=== PATIENT | female | born 1940 | race Caucasian/White ===

== ENCOUNTER → 2024-01-23 13:29 | Outpatient (REF) | payer MEDICARE, SELFPAY | LOC: RAD 13:29 | PROVIDERS: ATTENDING PHYSICIAN Student in an Organized Health Care Education/Training Program | DX: K59.00 Constipation, unspecified (principal); Z87.19 Personal history of other diseases of the digestive system | CPT/HCPCS: 74177; Q9967 ==

== ENCOUNTER → 2024-01-30 12:08 | Outpatient (REF) | payer MEDICARE, SELFPAY ==
[2024-01-30 14:15] LABS: TSH Reflex To Free T4 3.24 uIU/ml (0.47-4.68)
== END ==
LOC: REG 12:08
PROVIDERS: ATTENDING PHYSICIAN Student in an Organized Health Care Education/Training Program
DX: Z13.29 Encounter for screening for other suspected endocrine disorder (principal); N64.4 Mastodynia; I10 Essential (primary) hypertension; R73.03 Prediabetes; I48.0 Paroxysmal atrial fibrillation
CPT/HCPCS: 36415; 84443

== ENCOUNTER → 2024-03-11 14:51 | Outpatient (REF) | payer MEDICARE, SELFPAY | LOC: RCS 14:51 | PROVIDERS: ATTENDING PHYSICIAN Physician Assistant; FAMILY PHYSICIAN Family Medicine | DX: R06.09 Other forms of dyspnea (principal); I48.0 Paroxysmal atrial fibrillation | CPT/HCPCS: 93306 ==

== ENCOUNTER → 2024-04-15 10:00 | Outpatient (REF) | payer MEDICARE, SELFPAY | LOC: WDC 10:00 | PROVIDERS: ATTENDING PHYSICIAN Family Medicine | DX: N64.4 Mastodynia (principal) | CPT/HCPCS: 76642; 77062; 77066 ==

== ENCOUNTER → 2024-04-27 09:26 | Outpatient (REF) | payer MEDICARE, SELFPAY ==
[2024-04-27 10:42] LABS: % Eosinophils 2.6 % (0-6); % Immature Granulocytes 0.3 % (0-0.5); % Lymphocytes 25.3 % (20.5-51.1); % Monocytes 7.1 % (1.7-9.3); % Neutrophils 63.7 % (42.2-75.2); Absolute Basophils 0.1 10^3/uL (0-0.2); Absolute Eosinophils 0.2 10^3/uL (0-0.7); Absolute Lymphocytes 1.6 10^3/uL (1.2-3.4); Absolute Monocytes 0.4 10^3/uL (0.1-0.6); Hematocrit 38.4 % (37.0-47.0); Hemoglobin 12.8 g/dL (12.0-16.0); Mean Corp Hgb Conc. 33.3 g/dL (33.0-37.0); Mean Corpuscular Hgb 29.2 pg (27.0-31.0); Mean Corpuscular Volume 87.5 fL (81.0-99.0); Mean Platelet Volume 9.8 fL (7.4-10.4); Nucleated Red Blood Cells % 0 %; Platelet Count 224 10^3/uL (130-400); Red Blood Cell Count 4.39 10^6/uL (4.20-5.40); Red Cell Dist. Width 13.5 % (11.5-14.5); White Blood Cell Count 6.2 10^3/uL (4.8-10.8)
[2024-04-27 10:46] LABS: Urine Albumin Negative (Neg - Trace); Urine Bilirubin Negative (Negative); Urine Character Clear (Clear); Urine Color Yellow; Urine Glucose Negative (Negative); Urine Ketone Negative (Negative); Urine Leukocyte Trace (Negative); Urine Nitrite Negative (Negative); Urine Occult Blood 1+ (Negative); Urine Urobilinogen Negative (Neg - 1+)
[2024-04-27 11:21] LABS: ALT (SGPT) 11 U/L (0-35); AST (SGOT) 32 U/L (14-36); Albumin 4.1 g/dl (3.5-5.0); Alkaline Phosphatase 58 U/L (38-126); Blood Urea Nitrogen 18 mg/dl (7-17); Calcium 9.7 mg/dl (8.4-10.2); Carbon Dioxide 29 mmol/L (22-30); Chloride 104 mmol/L (98-107); Glucose 90 mg/dl (70-99); HDL Cholesterol 79 mg/dl; LDL Cholesterol, Calculated 68 mg/dl; Potassium 4.5 mmol/L (3.5-5.1); Sodium 141 mmol/L (135-145); Total Bilirubin 0.7 mg/dl (0.2-1.3); Total Cholesterol 164 mg/dl (50-199); Total Protein 6.5 g/dl (6.3-8.2); Triglyceride 87 mg/dl (10-149); Very Low Density Lipoprotein 17 mg/dl (0-30); eGFR > 60.00
[2024-04-27 12:04] LABS: Urine White Cell 0-2 /HPF (0-5)
[2024-04-27 12:10] LABS: Glycohemoglobin (HgbA1c) 5.6 % (4.0-5.6)
[2024-04-27 18:20] LABS: TSH Reflex To Free T4 3.47 uIU/ml (0.47-4.68)
== END ==
LOC: REG 09:26
PROVIDERS: ATTENDING PHYSICIAN Family Medicine
DX: N64.4 Mastodynia (principal); I10 Essential (primary) hypertension; R73.03 Prediabetes; I48.0 Paroxysmal atrial fibrillation; Z13.29 Encounter for screening for other suspected endocrine disorder
CPT/HCPCS: 36415; 80053; 80061; 81003; 81015; 83036; 84443; 85025

== ENCOUNTER → 2024-11-11 13:35 | Outpatient (REF) | payer MEDICARE, SELFPAY | LOC: RAD 13:35 | PROVIDERS: ATTENDING PHYSICIAN Family Medicine | DX: R06.2 Wheezing (principal); R06.02 Shortness of breath | CPT/HCPCS: 71046 ==

== ENCOUNTER 2025-01-27 06:37 | Emergency (ER) | payer MEDICARE, SELFPAY ==
[2025-01-27] VITALS (8 sets, daily range): BP systolic 129–157; BP diastolic 51–73; BMI 24.8
--- NOTE | 2025-01-27 06:40 | ED.GENMED ---
History of Present Illness
General
Chief Complaint: Heart Rate Problem
Source: patient and ambulance crew
Time Seen by Provider: 01/27/25 06:40
History of Present Illness
History of Present Illness:
As per EMS this patient is an 84-year-old female who awoke with substernal chest discomfort without radiation associated with dyspnea. Upon their arrival patient was noted to be in A-fib with a rate of 1 40-1 50s. On transport here, they suspect
patient spontaneously converted and her rate is noted to be in the 70s.
As per patient, patient has been not feeling quite herself since yesterday. She said she noticed when walking back and forth to the gym that it was a little bit hard to breathe. She noticed last night while going to bed that she was very tired and
had some slight discomfort in her chest. She went to the bathroom during the night without new symptoms. She awoke at approximately 5 AM feeling particularly short of breath with chest discomfort. Her watch told her that she should be seen by
emergency. She is unaware if her heart rate was elevated yesterday. She states that the symptoms are very consistent with when she develops atrial fibrillation. She denies leg swelling, orthopnea, fever, chills, dizziness, abdominal pain, nausea,
vomiting. Patient is not anticoagulated given her history of GI bleed.
Past History
Past History
ED Past Medical History: Arrthythmia (Afib), HTN, Hypercholesterolemia, Hypothyroidism and Other (GI bleed, Ulcers); Negative NIDDM
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
Social History
Tobacco: Former smoker
Alcohol: Occasional
Drug: None
Personal: Single
Living: assisted living
Employment: Retired
Family History
Family History: Other (reviewed and non-contributory)
Phy Exam
Physical Exam
Physical Exam:
GENERAL: Alert , in no apparent distress
EYE: pupils equal and reactive
NECK: Supple, no significant adenopathy.
ENT: o/p clr, mmm.
CARDIAC: Regular rate and rhythm, 2 out of 6 systolic murmur noted.
LUNGS: Clear breath sounds bilaterally, no acute respiratory distress, no wheezes/rales/rhonchi
ABDOMEN: Soft, without focal tenderness, no r/g, no cvat
NEUROLOGICAL: Alert and oriented, no focal neuro deficits
SKIN: Warm and dry, skin intact.
MUSCULOSKELETAL: No edema, well perfused.
PSYCH: Normal and appropriate interaction.
Course
Orders/Labs/Results
Orders:
Orders
01/27/25 06:39
EKG [Electrocardiogram (*1)] Urgent
Reason for Study: Chest Pain
EKG- Treatment ONCE
01/27/25 06:45
Complete Blood Count/With Diff Urgent
01/27/25 06:58
CR Chest - 2 Views Urgent
Comment:
Reason For Exam: sob, afib, cp
01/27/25 07:11
Comprehensive Metabolic Panel Urgent
Comment: REDRAW
D-Dimer Urgent
NT-proBNP Urgent
TSH Urgent
Troponin I Urgent
01/27/25 09:10
Urinalysis Reflex To Culture Urgent
Date Specimen was Collected: 01/27/25
Time Specimen was Collected: 09:04
01/27/25 10:14
Troponin I Urgent
Abnormal Lab Results
01/27/25
07:11
Chloride 109 H mmol/L
(98-107)
BUN 22 H mg/dl
(7-17)
Glucose 101 H mg/dl
(70-99)
01/27/25 06:45
01/27/25 07:11
Vital Signs
Initial and Last Documented VS:
Initial Vital Signs
Temp
97.5 F
01/27/25 06:40
Last Documented Vital Signs
Temp Pulse Resp BP Pulse Ox
97.5 F 53 11 134/53 95
01/27/25 06:40 01/27/25 11:00 01/27/25 11:00 01/27/25 11:00 01/27/25 11:00
Update Note
Update Note:
Patient presents to the Emergency Department with ___chest pain and dyspnea
Number and Complexity of Problems Addressed at the Encounter
� Chronic conditions affecting care:
� Acute Exacerbation and/or Progression of Chronic Illness:
� Differential Diagnosis includes: But not limited to ACS, arrhythmia, pe, etc. etc.
Amount and/or Complexity of Data to be Reviewed and Analyzed
� I performed an independent evaluation of and my interpretation is:
EKG: Read by me normal sinus rhythm, normal rate, nonspecific T wave abnormalities which are unchanged from prior
CT:
Xrays: Read by me NAD
Laboratory Studies: Generally unremarkable
Other:
� Review of other/old records reveals: Patient was hospitalized June 2022 with a GI bleed, discharge summary reviewed by me
� Clinical information was obtained by an independent historian: Paramedics
� Prescriptions/Medications Considered but not given:
� Further testing considered but not performed:
Risk of Complications and/or Morbidity or Mortality of Patient Management
� Social determinants of health affecting care:
� Discussion with other providers (PCP, Hospitalists, Consultants, etc):
� Escalation of care including admission/observation vs risk of discharge considered: 11:17 AM troponin x 2 unremarkable, ECG without acute ischemic changes, patient asymptomatic without chest pain dyspnea etc. Suspect her
symptoms related to paroxysmal A-fib which is now resolved. Text sent to Dr. IZZY Jacob, covering for Dr. Joseph, informing him of her visit here, her in eligibility for a DOAC, and requests for close follow-up.
ED Attending Note
-
Portions of this chart may have been created with voice recognition software.� Occasional wrong word or��sound alike� substitutions may have occurred due to the inherent limitations of voice recognition software.
Discharge Plan
Departure
Patient Disposition: Home (Routine Discharge)
Date of Disposition: 01/27/25
Time of Disposition: 11:18
Patient with high blood pressure during this ER visit?: Yes
Discharge Problem:
Paroxysmal atrial fibrillation
Instructions: Atrial Fibrillation (DC), BLOOD PRESSURE
Prescriptions:
No Action
cyanocobalamin (vitamin B-12) 1,000 MCG tablet
1,000 mcg PO DAILY
Refresh Classic (PF) 10 DROPS dropperette
1 drp BOTH EYES BID
atorvastatin 20 MG tablet
20 mg PO HS
amiodarone [Pacerone] 200 MG tablet
100 mg PO QPM
pantoprazole 40 MG tablet,delayed release (DR/EC)
40 mg PO DAILY
levothyroxine 50 MCG tablet
50 mcg PO DAILY AT 0700
L.acidoph,paracasei,B.animalis 1 EACH capsule
1 ea PO DAILY
metoprolol succinate 25 MG tablet extended release 24 hr
25 mg PO QPM
docusate sodium 50 mg Capsule
50 mg PO DAILY
clobetasol 0.05 % Ointment
1 applic TOPICAL DAILY
Probiotic 3 billion cell Capsule
3,000 mmu cells PO DAILY
acetaminophen 500 mg Tablet,Chewable
1,000 mg PO Q6H PRN (Reason: pain)
telmisartan-hydrochlorothiazid 80-12.5 mg Tablet
1 tab PO DAILY
amlodipine 5 mg Tablet
5 mg PO DAILY
tacrolimus 0.1 % Ointment
1 applic TOPICAL BID PRN (Reason: skin rash)
Centrum Silver Tablet
1 tab PO DAILY
De3 Dry Eye [place] Benefits 800 mg-186.67 mg-8.33 mcg Capsule
1 cap PO BID
Dupixent Syringe
1 dose IM Q14D
Referrals:
Otto Vinson DO [Family Provider, Family Practice]
Activity Restrictions/Additional Instructions:
PLEASE CONTACT YOUR MARITIME GUARD IN THE NEXT 24 HOURS FOR FOLLOW-UP. IF YOU DEVELOP PALPITATIONS, CHEST PAIN, SHORTNESS OF BREATH, DIZZINESS, OR OTHER WORRISOME SIGNS, PLEASE RETURN TO THE ER IMMEDIATELY.
Interventions
Interventions:
*Risk Screen - Suicide Last Done: 01/27/25 06:40
*General Assessment Last Done: 01/27/25 06:40
*Neglect/Abuse Screening Last Done: 01/27/25 06:40
*ED- Fall Risk Assessment Last Done: 01/27/25 06:40
*ED COVID-19 Vaccine History Last Done: 01/27/25 06:40
ED- Cardiac Assessment Last Done: 01/27/25 06:54
ED- Pulmonary Assessment Last Done: 01/27/25 06:54
Discharge Date and Time
Print Language: VINCENTIAN
[2025-01-27 07:06] LABS: % Basophils 1.2 % (0-2); % Eosinophils 4.4 % (0-6); % Immature Granulocytes 0.3 % (0-0.5); % Lymphocytes 22.2 % (20.5-51.1); % Monocytes 8.3 % (1.7-9.3); % Neutrophils 63.6 % (42.2-75.2); Absolute Basophils 0.1 10^3/uL (0-0.2); Absolute Eosinophils 0.3 10^3/uL (0-0.7); Absolute Lymphocytes 1.5 10^3/uL (1.2-3.4); Absolute Monocytes 0.6 10^3/uL (0.1-0.6); Absolute Neutrophils 4.3 10^3/uL (1.4-6.5); Hematocrit 39.3 % (37.0-47.0); Mean Corp Hgb Conc. 33.1 g/dL (33.0-37.0); Mean Corpuscular Hgb 29.8 pg (27.0-31.0); Mean Corpuscular Volume 90.1 fL (81.0-99.0); Mean Platelet Volume 10.1 fL (7.4-10.4); Nucleated Red Blood Cells % 0 %; Platelet Count 178 10^3/uL (130-400); Red Blood Cell Count 4.36 10^6/uL (4.20-5.40); Red Cell Dist. Width 13.3 % (11.5-14.5); White Blood Cell Count 6.8 10^3/uL (4.8-10.8)
[2025-01-27 07:52] LABS: ALT (SGPT) 10 U/L (0-35); AST (SGOT) 26 U/L (14-36); Albumin 3.9 g/dl (3.5-5.0); Alkaline Phosphatase 51 U/L (38-126); Blood Urea Nitrogen 22 mg/dl (7-17); Carbon Dioxide 27 mmol/L (22-30); Chloride 109 mmol/L (98-107); Estimated Creatinine Clearance 44 ml/min; Glucose 101 mg/dl (70-99); Potassium 4.1 mmol/L (3.5-5.1); Sodium 141 mmol/L (135-145); Total Bilirubin 0.5 mg/dl (0.2-1.3); Total Protein 6.4 g/dl (6.3-8.2); eGFR > 60.00
[2025-01-27 08:01] LABS: NT-proBNP 1140 pg/ml; Troponin I < 0.012 ng/ml
[2025-01-27 08:16] LABS: TSH 3.81 uIU/ml (0.47-4.68)
[2025-01-27 09:28] LABS: Urine Albumin Negative (Neg - Trace); Urine Bilirubin Negative (Negative); Urine Character Clear (Clear); Urine Color Straw; Urine Glucose Negative (Negative); Urine Ketone Negative (Negative); Urine Leukocyte Negative (Negative); Urine Nitrite Negative (Negative); Urine Occult Blood Negative (Negative); Urine Specific Gravity 1.005 (<1.030); Urine Urobilinogen Negative (Neg - 1+)
[2025-01-27 10:57] LABS: Troponin I < 0.012 ng/ml
== END 2025-01-27 11:51 | disposition home or self-care (01) ==
LOC: EMR 06:37
PROVIDERS: EMERGENCY PHYSICIAN Emergency Medicine; FAMILY PHYSICIAN Family Medicine
DX: R07.89 Other chest pain (principal); I48.0 Paroxysmal atrial fibrillation; R06.00 Dyspnea, unspecified; I10 Essential (primary) hypertension; E78.00 Pure hypercholesterolemia, unspecified; E03.9 Hypothyroidism, unspecified; Z96.651 Presence of right artificial knee joint; Z87.891 Personal history of nicotine dependence; Z88.8 Allergy status to other drugs, medicaments and biological substances; Z91.048 Other nonmedicinal substance allergy status
CPT/HCPCS: 99285; 71046; 80053; 81003; 83880; 84443; 84484; 85025; 85379; 93005

== ENCOUNTER → 2025-03-29 09:24 | Outpatient (REF) | payer MEDICARE, SELFPAY | LOC: PAVMRI 09:24 | PROVIDERS: ATTENDING PHYSICIAN Family Medicine | DX: K76.9 Liver disease, unspecified (principal) | CPT/HCPCS: 74183; A9575 ==

== ENCOUNTER → 2025-04-28 09:06 | Outpatient (REF) | payer MEDICARE, SELFPAY ==
[2025-04-28 10:10] LABS: Hematocrit 40.2 % (37.0-47.0); Hemoglobin 12.6 g/dL (12.0-16.0); Mean Corp Hgb Conc. 31.3 g/dL (33.0-37.0); Mean Corpuscular Volume 88.5 fL (81.0-99.0); Nucleated Red Blood Cells % 0 %; Platelet Count 235 10^3/uL (130-400); Red Cell Dist. Width 13.5 % (11.5-14.5)
[2025-04-28 10:29] LABS: Urine Character Clear (Clear)
[2025-04-28 10:34] LABS: ALT (SGPT) 13 U/L (0-35); AST (SGOT) 30 U/L (14-36); Albumin 4.1 g/dl (3.5-5.0); Alkaline Phosphatase 58 U/L (38-126); Blood Urea Nitrogen 20 mg/dl (7-17); Calcium 9.6 mg/dl (8.4-10.2); Carbon Dioxide 28 mmol/L (22-30); Chloride 105 mmol/L (98-107); Glucose 87 mg/dl (70-99); HDL Cholesterol 100 mg/dl; LDL Cholesterol, Calculated 65 mg/dl; Potassium 4.4 mmol/L (3.5-5.1); Sodium 138 mmol/L (135-145); Total Protein 6.7 g/dl (6.3-8.2); Very Low Density Lipoprotein 15 mg/dl (0-30); eGFR > 60.00
[2025-04-28 10:53] LABS: Microalb - Urine Creatinine 79.500 mg/dl
[2025-04-28 10:56] LABS: Microalbumin, Random Urine 1.5 mg/dl (0.6-1.7)
[2025-04-28 11:05] LABS: Urine Squamous Cell 16-20 /LPF (Few)
[2025-04-28 11:07] LABS: Urine Red Blood Cell 0-2 /HPF (0-2); Urine White Cell 0-2 /HPF (0-5)
[2025-04-28 11:19] LABS: TSH 3.80 uIU/ml (0.47-4.68)
[2025-04-28 13:19] LABS: Glycohemoglobin (HgbA1c) 5.6 % (4.0-5.6)
== END ==
LOC: REG 09:06
PROVIDERS: ATTENDING PHYSICIAN Family Medicine
DX: R79.89 Other specified abnormal findings of blood chemistry (principal); I10 Essential (primary) hypertension; C67.9 Malignant neoplasm of bladder, unspecified; R73.03 Prediabetes; E78.49 Other hyperlipidemia; I48.0 Paroxysmal atrial fibrillation; E03.9 Hypothyroidism, unspecified
CPT/HCPCS: 36415; 80053; 80061; 81003; 81015; 82043; 82570; 83036; 84439; 84443; 85025

== ENCOUNTER → 2025-05-04 11:25 | Outpatient (REF) | payer MEDICARE, SELFPAY | LOC: CLAB 11:25 | PROVIDERS: ATTENDING PHYSICIAN Specialist | DX: C67.1 Malignant neoplasm of dome of bladder (principal) | CPT/HCPCS: 88112 ==

== ENCOUNTER 2025-06-01 15:47 | Inpatient (IN) | payer MEDICARE, SELFPAY ==
[2025-06-01] VITALS (11 sets, daily range): BP systolic 129–165; BP diastolic 45–97; BMI 26.2; BMI 28.7
--- NOTE | 2025-06-01 11:19 | ED.GENMED ---
History of Present Illness
General
Chief Complaint: Rectal Bleeding
Time Seen by Provider: 06/01/25 11:19
Nursing documentation reviewed up to this point in time: agreed with
History of Present Illness
History of Present Illness:
85-year-old female presents to the ER for evaluation of shortness of breath with exertion along with dark tarry stools. Patient was started on Xarelto last week by her area relief pilot (Jake) as she is going to be undergoing cardiac procedure at
the end of the month (watchman/ablation). 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 She states that shortly after initiating her Xarelto her stools changed in color and
consistency to more of a dark tarry consistency. She denies any bright red blood in her stool. She reports a feeling of shortness of breath with any exertion over the last 2 days. No prior history of ACS. She has been eating and drinking without
any difficulty. She denies any syncope or trauma. She denies chest pain, only that it seems she needs to exert herself more for her usual activities.
Past History
Past History
ED Past Medical History: Arrthythmia (Afib), HTN, Hypercholesterolemia, Hypothyroidism and Other (GI bleed, Ulcers); Negative NIDDM
ED Past Surgical History: Cardiac ([employer] color television console monitor implanted, Ablation) and Orthopedic (R knee replacement)
Social History
Tobacco: Former smoker
Alcohol: Occasional
Drug: None
Personal: Single
Living: assisted living
Employment: Retired
Family History
Family History: Other (reviewed and non-contributory)
Review of Systems
Review of Systems
Allergies reviewed?: Yes
Phy Exam
Physical Exam
Physical Exam:
Patient is awake, alert, appears in no acute distress, head is NCAT, PERRL, EOMI mucous membranes moist, conjunctiva pink, heart regular rate and rhythm without murmurs or ectopy, lungs are clear to auscultation without wheezes rales or rhonchi, no
JVD, abdomen is soft and nontender on palpation, rectal exam reveals multiple internal and external hemorrhoids, no bright red blood seen, stool is dark brown in color, strongly heme positive, control positive, extremities without edema, GCS is 15
Course
Orders/Labs/Results
Orders:
Orders
06/01/25 Lunch
Clear Liquid
At Your Request: Full Participation
06/01/25 11:29
IV Insert/Care/Rem.- Treatment PRN
Pantoprazole [Protonix IV] 80 mg IV NOW STA
Pulse Ox/cont/shift [RESP] Stat
Quantity: 1
06/01/25 11:30
Electrocardiogram (*1) Stat
Reason for Study: Other
Other Reason for Exam: GI Bleed
EKG- Treatment ONCE
CR Chest - 2 Views Urgent
Comment:
Reason For Exam: dyspnea
06/01/25 11:54
Type+Screen Urgent
Comprehensive Metabolic Panel Urgent
PTT Urgent
Prothrombin Time Urgent
Troponin I Urgent
06/01/25 14:57
Admit/Transfer Patient As Directed
Co-Sign Provider:
Level of Care: Inpatient admission
Assign to:: Telemetry
Physician / Group: dhaval sofia
Diagnosis: upper gi bleed on xarelto, bradycardis , hx parox afib
Reason for Telemetry: Arrhythmia
Date to Stop Telemetry: 06/04/25
Time to Stop Telemetry: 11:00
Reason for Hospitalization: upper gi bleed on xarelto, bradycardis , hx parox afib
Expected length of stay greater than two midnights?: Yes
ELOS- Estimated Length of Stay in days: 4
I certify the patient meets the requirements for IP care: Yes
Code Status As Directed
Resuscitation Status: Full Code
CARDIOLOGY CONSULT Routine
Consulting Provider: Wing Grajeda
Was physician already notified: Yes
Reason for consult: gi bleed xarelto due to wathman/ablation
GASTROINTESTINAL CONSULT Routine
Consulting Provider: Natasha Villarreal
Was physician already notified: Yes
Reason for consult: gi bleed on xarelto
06/01/25 15:01
PRN Pain Medication Management As Directed
May give lesser potent ordered pain med per pt: Yes
preference::
Protocol:: Medication orders for pain may be administered in a
manner that supports deferring to patient preference
when the pt is:
- Requesting an ordered lesser potent pain medication.
Least to most potent pain medications are defined
as: acetaminophen < NSAID < tramadol < opioids
(morphine, oxycodone, hydromorphone).
- Requesting a lesser dose of the same medication IF
ORDERED.
- Requesting a less intrusive route of administration
if both routes are prescribed by the provider (PO <
IV).
06/01/25 15:41
Add On- LAB Routine
Tests Added?: iron, TIBC, % sat, ferritin, B12, folate
06/04/25 11:00
DC Protocol for Telemetry ONCE
Abnormal Lab Results
06/01/25
11:54
PT 15.5 H Sec
(11.4-14.6)
Chloride 108 H mmol/L
(98-107)
BUN 23 H mg/dl
(7-17)
Total Protein 6.1 L g/dl
(6.3-8.2)
Antibody Screen Positive A
(Negative)
06/01/25 11:54
Patient had outpatient labs this morning, CBC performed just prior to arrival shows hemoglobin 9.3 which is a 3 g drop compared to priors from 04/28/2025.
Vital Signs
Initial and Last Documented VS:
Initial Vital Signs
Temp Pulse Resp BP Pulse Ox
97.7 F 66 18 164/68 97
06/01/25 10:58 06/01/25 10:58 06/01/25 10:58 06/01/25 10:58 06/01/25 10:58
Last Documented Vital Signs
Temp Pulse Resp BP Pulse Ox
97.5 F 62 19 138/53 96
06/01/25 12:23 06/01/25 13:15 06/01/25 13:15 06/01/25 13:00 06/01/25 13:15
MDM/Problems Addressed
Differential Diagnosis Includes:
Differential diagnosis to consider but not limited to symptomatic anemia, GI bleeding, hemorrhoidal vs AVM vs diverticular bleeding, ACS along with other etiologies considered
Chronic conditions affecting care:
Advanced age, prior GI bleeding
*Radiology
Radiology exam reviewed: other (CT abdomen pelvis is considered but not ordered given overall benign exam and no evidence for significant active arterial bleeding that would necessitate CT angio)
*Pulse Oximetry
SaO2: 97
Oxygen Mode of Delivery: Room air
Patient hypoxic: no
*EKG
Interpreted by ED Provider?: Yes (I independently viewed and interpreted twelve-lead EKG showing sinus bradycardia, rate 57, leftward axis, incomplete left bundle branch block, LVH with strain pattern, no ST elevation, this is an abnormal tracing
without significant change other than rate compared to prior from 01/27/2025)
*Quality Cloth Tester Interpretation
Rate: bradycardiac (I independently viewed and interpreted rhythm strip showing sinus bradycardia, no ectopy)
*Critical Care Note
Total Time (30-74mins, 75-104mins- exclusive of procedures): Not Applicable
Update Note
Update Note:
Patient with stable vital signs throughout time in the emergency department. Given complicating factor of current Xarelto use along with 3 g drop in hemoglobin along with patient's dyspnea on exertion, she agrees with plan for admission for further
evaluation and care. Hemoglobin is 9, no indication for emergent blood transfusion. I reviewed full patient presentation and physical exam findings with hospitalist accepts patient for admission for further care.
ED Attending Note
-
Portions of this chart may have been created with voice recognition software.� Occasional wrong word or��sound alike� substitutions may have occurred due to the inherent limitations of voice recognition software.
Discharge Plan
Departure
Patient Disposition: Admit
Date of Disposition: 06/01/25
Time of Disposition: 14:05
Presentation/result/management discussed w/ accepting MD/DO: Hospitalist
Discharge Problem:
Acute GI bleeding, Symptomatic anemia, Current use of anticoagulant therapy
Prescriptions:
No Action
cyanocobalamin (vitamin B-12) 1,000 MCG tablet
1,000 mcg PO DAILY
Refresh Classic (PF) 10 DROPS dropperette
1 drp BOTH EYES BID
atorvastatin 20 MG tablet
20 mg PO HS
pantoprazole 40 MG tablet,delayed release (DR/EC)
40 mg PO DAILY
levothyroxine 50 MCG tablet
50 mcg PO DAILY AT 0700
metoprolol succinate 25 MG tablet extended release 24 hr
25 mg PO QPM
clobetasol 0.05 % Ointment
1 applic TOPICAL DAILY
amlodipine 5 mg Tablet
5 mg PO QPM
Dupixent Syringe 300 mg/2 mL Syringe
300 mg SC QWEEK
De3 Dry Eye [place] Benefits 800 mg-186.67 mg-8.33 mcg Capsule
1 cap PO BID
amiodarone 200 mg Tablet
200 mg PO DAILY
Theragen Tablet
1 tab PO DAILY
telmisartan 80 mg Tablet
80 mg PO DAILY
Visbiome 112.5 billion cell Capsule
1 cap PO DAILY
Xarelto 20 mg Tablet
20 mg PO QPM
docusate sodium [Colace] 100 mg Capsule
100 mg PO DAILY
Referrals:
Otto Vinson DO [Family Provider, Family Practice]
Interventions
Interventions:
*Risk Screen - Suicide Last Done: 06/01/25 10:58
*General Assessment Last Done: 06/01/25 10:58
*Neglect/Abuse Screening Last Done: 06/01/25 12:51
*ED- Fall Risk Assessment Last Done: 06/01/25 12:51
*ED COVID-19 Vaccine History Last Done: 06/01/25 12:51
*ED Influenza Vaccine History Last Done: 06/01/25 12:51
WN-Oeftcj-Ditrqmenqd Assessment Last Done: 06/01/25 12:26
ED- Cardiac Assessment Last Done: 06/01/25 12:26
ED- Pulmonary Assessment Last Done: 06/01/25 12:26
Discharge Date and Time
Print Language: YAKUT
[2025-06-01 12:11] LABS: INR 1.17; PT 15.5 Sec (11.4-14.6)
[2025-06-01 12:12] LABS: APTT 32.9 Sec (23.4-35.0)
[2025-06-01 12:22] LABS: ALT (SGPT) 10 U/L (0-35); AST (SGOT) 25 U/L (14-36); Albumin 3.8 g/dl (3.5-5.0); Alkaline Phosphatase 51 U/L (38-126); Blood Urea Nitrogen 23 mg/dl (7-17); Calcium 9.0 mg/dl (8.4-10.2); Carbon Dioxide 26 mmol/L (22-30); Chloride 108 mmol/L (98-107); Glucose 92 mg/dl (70-99); Potassium 4.6 mmol/L (3.5-5.1); Sodium 137 mmol/L (135-145); Total Protein 6.1 g/dl (6.3-8.2); eGFR > 60.00
[2025-06-01] MEDS: PROTONIX IV 80 MG IV (12:43)
[2025-06-01 12:51] LABS: Troponin I < 0.012 ng/ml
--- NOTE | 2025-06-01 14:10 | CON.GI ---
Addendum entered and electronically signed by Natasha Villarreal MD 06/01/25 16:36:
I saw and examined the patient.
The LABOR RELATIONS OR PERSONNEL NEGOTIATOR's note was reviewed and I agree with the note.
Comment: This is a 85-year-old female with a past medical history as listed below and also has prior history of anemia with GI bleed attributed to gastric and duodenal angioectasias and remote history of PUD and last colonoscopy was in 2021 and she
was noted to have diverticulosis and hemorrhoids then. Her last endoscopy was also in 2021 which showed a hiatal hernia, Schatzki's ring and normal duodenum but prior to that in 2018 she had gastric angioectasias which were APC and in 2016 she had
duodenal angioectasias that were APC. She had recently been started on Xarelto in anticipation of possible Watchman in June and started on 05/22/2025. For the last few days she has noticed dark stools and is feeling tired and presented to the
emergency room and her hemoglobin was 9.3 her prior hemoglobin on 04/28/2025 was 12.6. She currently denies any abdominal pain.
Assessment and plan acute posthemorrhagic anemia and also likely has chronic GI blood loss from known angioectasias. Bleeding exacerbated by recent start of Xarelto on 05/22 and her last dose was on 05/30/2025. Will schedule her for enteroscopy
tomorrow and if that is negative then a capsule endoscopy. She did have a colonoscopy in 2021 that showed diverticulosis and hemorrhoids and was otherwise unremarkable so will hold on repeating colonoscopy. Continue to trend hemoglobin. She also
started on Protonix
She also had an MRI in March 2025 which showed multiple hepatic cysts and given their stability no further surveillance was recommended. She also has gallstones but currently asymptomatic from it
Original Note:
Consultation
-
Date/Time Consultation Requested: 06/01/25 1400
Date/Time Consultation Performed: 1410
Requesting Provider: SERGE Alba
Performing Provider: SERGE Luque, Natasha Villarreal MD
Reason for Consultation: rectal bleeding
Medical History
Chief Complaint / HPI
Chief Complaint: GI bleed
History of Present Illness:
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
post EGD, enteroscopy and colonoscopy and distant hx capsule. She has recently been off anticoagulation and was working with cardiology for possible watchman in June. She did Xarelto trial prior to procedure from 05/22 with onset of dark
stools about 3-4 days after starting with shortness of breath. She states she was having about 1 stool daily. She came for blood work and while at [place] presented to ER for evaluation as was not feeling well.. On admission hbg was 9.3 with
last hbg 12.6 on 04/28/25.
Pt also admits to periods of afib and chest pain with cardiology evaluation pending. She also admits to constipation at time. She otherwise denies odynophagia, dysphagia, GERD, nausea, vomiting, abdominal pain, diarrhea, or red stool. No
NSAID use. heme + brown stool in ER.
06/2022- Ahmad- colonoscopy- diverticulosis, hemorrhoid
06/2022- jessica EGD-mild schatzki's ring, small HH, normal duodenum
12/2018- EGD Do - Normal esophagus. - Old dark blood in the gastric body. - Two recently bleeding AVM in the stomach at lesser curvature and 1 bleeding AVM near pyloric channel Treated with argon plasma coagulation (APC) with good hemostasis - The
examined duodenum and proximal jejunum had old black blood refluxed. After irrigation mucosa underneath was normal appearing.
05/2018-colonoscopy- salguti - Preparation of the colon was fair. stool in colon diverticulosis, IH
05/2018 EGD - Normal esophagus.small HH, bilious gastric fluid - Erythematous duodenopathy. normal duodenum and jejunum
07/2017- EGD normal mild antral gastritis, non bleeding angioectasia in duodenum, s/p APC, normal third portion, normal proximal jejunum
07/2017- EGD - Normal gastroesophageal junction - Z-line regular, 38 cm from the incisors- Erythematous mucosa in the gastric fundus, gastric body and antrum - Normal first portion of the duodenum - No specimens collected.
03/2017- capsule- per office not normal
Past Medical History
Past Medical History: Arrhythmias (afib with prior ablation), Cancer (bladder CA), HTN, Hypercholesterolemia, Hypothyroidism, NIDDM and Other (GI bleeding from gastric and duodenal angiectasia, multiple hepatic cysts, anemia, osteoporosis ,
constipation )
Past Surgical History: Cardiac (ablation), Orthopedic (right TKR) and Urological (TURBT)
Social History
Tobacco: Former Smoker
Alcohol: None
Living: Alone
Employment: Retired
Family History
Family History: Other (no family hx GI issues or cancers )
Allergies / Home Medications
Allergy/AdvReac Type Severity Reaction Status Date / Time
pollen extracts Allergy Mild itchy Verified 06/01/25 10:58
eyes;
runny nose
apixaban (From Eliquis) Allergy facial Verified 06/01/25 10:58
swelling
�Medication �Instructions �Recorded
cyanocobalamin (vitamin B-12) 1,000 mcg PO DAILY 07/21/17
1,000 mcg tablet
polyvinyl alcohol-povidone (PF) 1 drp BOTH EYES BID 07/21/17
1.4 %-0.6 % eye drops in a
dropperette (Refresh Classic (PF))
atorvastatin 20 mg tablet 20 mg PO HS 01/18/19
pantoprazole 40 mg tablet,delayed 40 mg PO DAILY 12/19/20
release
levothyroxine 50 mcg tablet 50 mcg PO DAILY AT 0700 11/02/21
metoprolol succinate 25 mg 25 mg PO QPM 11/14/21
tablet,extended release 24 hr
clobetasol 0.05 % topical ointment 1 applic topical DAILY 10/09/22
amlodipine 5 mg tablet 5 mg PO QPM 01/27/25
dupilumab 300 mg/2 mL subcutaneous 300 mg SC QWEEK 01/27/25
syringe (Dupixent)
omega-3s 800 mg-dha 186.67 mg-epa 1 cap PO BID 01/27/25
560 mg-fish-vit D3 8.33 mcg
capsule (De3 Dry Eye [place]
Benefits)
Lactobac no.2-Bifidobac no.1-S. 1 cap PO DAILY 06/01/25
thermo 112.5 billion cell capsule
(Visbiome)
amiodarone 200 mg tablet 200 mg PO DAILY 06/01/25
docusate sodium 100 mg capsule 100 mg PO DAILY 06/01/25
(Colace)
rivaroxaban 20 mg tablet (Xarelto) 20 mg PO QPM 06/01/25
telmisartan 80 mg tablet 80 mg PO DAILY 06/01/25
therapeutic multivitamin 1 tab PO DAILY 06/01/25
Review of Systems
-
History Source: Patient
Constitutional: Reports Fatigue
EENT: Reports No Symptoms
Respiratory: Reports Trouble Breathing (with exertion)
Cardiac: Reports Chest Pain
Abdomen/GI: Reports Black Stools
: Reports No Symptoms
Musculoskeletal: Reports No Symptoms
Skin: Reports No Symptoms
Neurological: Reports Dizzy and Weakness
Endocrine: Reports No Symptoms
Hematologic/Lymphatic: Reports Bleeding
Vital Signs
Temp Pulse Resp BP Pulse Ox
97.5 F 62 19 138/53 96
06/01/25 12:23 06/01/25 13:15 06/01/25 13:15 06/01/25 13:00 06/01/25 13:15
Physical Exam
Exam
General: Well Developed, Well Nourished and No Apparent Distress
HEENT: Normocephalic and Anicteric
Respiratory: Clear
Cardiac: Regular Rhythm
GI: Soft, Non Tender and Non Distended
Rectal: Other (dark brown heme + in ER)
Musculoskeletal: No Clubbing and No Cyanosis
Skin: Warm and Dry
Neuro: Awake, Alert and AO x 3
Psych: Calm
Results
PT 15.5 Sec (11.4-14.6) H 06/01/25 11:54
INR 1.17 06/01/25 11:54
APTT 32.9 Sec (23.4-35.0) 06/01/25 11:54
Sodium 137 mmol/L (135-145) 06/01/25 11:54
Potassium 4.6 mmol/L (3.5-5.1) 06/01/25 11:54
Chloride 108 mmol/L (98-107) H 06/01/25 11:54
Carbon Dioxide 26 mmol/L (22-30) 06/01/25 11:54
BUN 23 mg/dl (7-17) H 06/01/25 11:54
Creatinine 0.9 mg/dL (0.6-1.0) 06/01/25 11:54
Calcium 9.0 mg/dl (8.4-10.2) 06/01/25 11:54
Total Bilirubin 0.4 mg/dl (0.2-1.3) 06/01/25 11:54
AST 25 U/L (14-36) 06/01/25 11:54
ALT 10 U/L (0-35) 06/01/25 11:54
Alkaline Phosphatase 51 U/L (38-126) 06/01/25 11:54
Diagnostic Image Results:
03/2025 MRI abdomen
Numerous simple hepatic cysts throughout the liver compatible with polycystic liver disease.
There is also a benign complex cyst in the right lobe of the liver with homogeneous increased T1-weighted signal, stable dating back to CT examinations in 2020.
For these hepatic lesions, in an 84-year-old, no further imaging follow-up is felt to be needed.
Cholelithiasis. No findings to suggest acute cholecystitis. No evidence of biliary ductal dilation.
Colonic diverticula are noted.
Benign left renal cysts.
Prior GI Procedures:
06/2022- mad- colonoscopy- diverticulosis, hemorrhoid
06/2022- jessica EGD-mild schatzki's ring, small HH, normal duodenum
12/2018- EGD Do - Normal esophagus. - Old dark blood in the gastric body. - Two recently bleeding AVM in the stomach at lesser curvature and 1 bleeding AVM near pyloric channel Treated with argon plasma coagulation (APC) with good hemostasis - The
examined duodenum and proximal jejunum had old black blood refluxed. After irrigation mucosa underneath was normal appearing.
05/2018-colonoscopy- salguti - Preparation of the colon was fair. stool in colon diverticulosis, IH
05/2018 EGD - Normal esophagus.small HH, bilious gastric fluid - Erythematous duodenopathy. normal duodenum and jejunum
07/2017- EGD normal mild antral gastritis, non bleeding angioectasia in duodenum, s/p APC, normal third portion, normal proximal jejunum
07/2017- EGD - Normal gastroesophageal junction - Z-line regular, 38 cm from the incisors- Erythematous mucosa in the gastric fundus, gastric body and antrum - Normal first portion of the duodenum - No specimens collected.
03/2017- capsule- per office not normal
Assessment / Plan
-
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
post EGD, enteroscopy and colonoscopy and distant hx capsule. She has recently been off anticoagulation and was working with cardiology for possible watchman in June. She did Xarelto trial prior to procedure from 05/22 with onset of dark
stools about 3-4 days after starting with shortness of breath. She states she was having about 1 stool daily. She came for blood work and while at [place] presented to ER for evaluation as was not feeling well. On admission hbg was 9.3 with
last hbg 12.6 on 04/28/25. Pt also admits to periods of afib and chest pain with cardiology evaluation during admission. She also admits to constipation at time. She otherwise denies odynophagia, dysphagia, GERD, nausea, vomiting, abdominal
pain, diarrhea, or red stool. No NSAID use heme + brown stool in ER.
06/2022- mad- colonoscopy- diverticulosis, hemorrhoid
06/2022- jessica EGD-mild schatzki's ring, small HH, normal duodenum
12/2018- EGD Do - Normal esophagus. - Old dark blood in the gastric body. - Two recently bleeding AVM in the stomach at lesser curvature and 1 bleeding AVM near pyloric channel Treated with argon plasma coagulation (APC) with good hemostasis - The
examined duodenum and proximal jejunum had old black blood refluxed. After irrigation mucosa underneath was normal appearing.
05/2018-colonoscopy- salguti - Preparation of the colon was fair. stool in colon diverticulosis, IH
05/2018 EGD - Normal esophagus.small HH, bilious gastric fluid - Erythematous duodenopathy. normal duodenum and jejunum
07/2017- EGD normal mild antral gastritis, non bleeding angioectasia in duodenum, s/p APC, normal third portion, normal proximal jejunum
07/2017- EGD - Normal gastroesophageal junction - Z-line regular, 38 cm from the incisors- Erythematous mucosa in the gastric fundus, gastric body and antrum - Normal first portion of the duodenum - No specimens collected.
03/2017- capsule- per office not normal
-melena
-anemia with drop in hbg
-afib on Xarelto prior to admission with tenative watchman in June
-hx multiple hepatic cysts
-hx AVM's with prior GI procedures
other med problems:
-bladder CA with TURBT
- HTN
- hyperlipidemia
- hypothyroidism
- NIDDM
-constipation
-diverticulosis
-hemorrhoids
PLAN:
etiology of bleeding related to AVM's anywhere in GI tract, PUD, vs other-- likely exacerbated by Xarelto trial prior to watchman
plan for EGD/enteroscopy 06/02
trend hbg and stools, transfuse as needed
Protonix BID
ok for clears then NPO in AM
add on iron studies, B12, folate
for cards eval
Xarelto hold last dose 05/30
-
-
Thank you for consultation and allowing me to participate in the patient's care. Please call the [facility] physician during the after hours with any questions or concerns.
--- NOTE | 2025-06-01 14:15 | HPS.HSE ---
Family Physician
-
Family Physician: Otto Vinson,
Chief Complaint
-
Black tarry stool on Xarelto epigastric pain for a few weeks
History of Present Illness
85-year-old female complaining of black tarry stool with shortness of breath over the past 5 days after starting Xarelto on 05/22 for upcoming Watchman device/ablation procedure on 06/27/[address] Joseph. She also complains of epigastric pain
over the past few weeks she has history of prior GI bleed thought to be related to diverticular bleeding/gastric ulcers�bleeding AVM.. She reports shortly after starting Xarelto her stools changed to dark tarry consistency. Her hemoglobin was
noted to be 12.6 3 days ago currently is 9.3. She denies fever, chills, chest pain, palpitations, cough, shortness of breath, abdominal pain, nausea, vomiting, diarrhea. She has past medical history of paroxysmal A-fib, cardiac ablation, LBBB,
HTN, HLD, hypothyroidism, GI bleed due to gastric ulcers 2018, bleeding AVM stomach curvature treated with APC 01/19/2019 former smoker
Medical History
Past Medical History
Past Medical History: Reports Other
Additional Past Medical History:
paroxysmal A-fib,/cardiac ablation
LBBB
Cardiac murmur
HTN
HLD
Hypothyroidism
Diverticulitis/diverticula
GI bleed due to gastric ulcers 2017
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
former smoker
Osteoarthritis/osteopenia
Past Surgical History: Reports Other
Additional Past Surgical History:
Cardiac ablation
Right TKA
Deviated septum repair
Oral surgery
Sinus lift for dental implants 2012
Linq recorder implant 07/21/2017
PVI ablation November 2020
Bladder CA 2022
Social History
Tobacco: Former Smoker (28 her half a pack a day quit age 48)
Alcohol: Occasional (Social only with going out to eat)
Employment: Retired
Family History
Family History: Not pertinent
Allergies / Home Medications
Allergies reflects when Allergies were last updated in [facility].
Home Medications with original date entered in [facility]
Allergy/Medication List:
Allergies
Allergy/AdvReac Type Severity Reaction Status Date / Time
pollen extracts Allergy Mild itchy Verified 06/01/25 10:58
eyes;
runny nose
apixaban (From Eliquis) Allergy facial Verified 06/01/25 10:58
swelling
Home Medications
cyanocobalamin (vitamin B-12) 1,000 mcg tablet 1,000 mcg PO DAILY 07/21/17
polyvinyl alcohol-povidone (PF) 1.4 %-0.6 % eye drops in a dropperette (Refresh Classic (PF)) 1 drp BOTH EYES BID 07/21/17
atorvastatin 20 mg tablet 20 mg PO HS 01/18/19
pantoprazole 40 mg tablet,delayed release 40 mg PO DAILY 12/19/20
levothyroxine 50 mcg tablet 50 mcg PO DAILY AT 0700 11/02/21
metoprolol succinate 25 mg tablet,extended release 24 hr 25 mg PO QPM 11/14/21
clobetasol 0.05 % topical ointment 1 applic topical DAILY 10/09/22
amlodipine 5 mg tablet 5 mg PO QPM 01/27/25
dupilumab 300 mg/2 mL subcutaneous syringe (Dupixent) 300 mg SC QWEEK 01/27/25
omega-3s 800 mg-dha 186.67 mg-epa 560 mg-fish-vit D3 8.33 mcg capsule (De3 Dry Eye [place] Benefits) 1 cap PO BID 01/27/25
Lactobac no.2-Bifidobac no.1-S. thermo 112.5 billion cell capsule (Visbiome) 1 cap PO DAILY 06/01/25
amiodarone 200 mg tablet 200 mg PO DAILY 06/01/25
docusate sodium 100 mg capsule (Colace) 100 mg PO DAILY 06/01/25
rivaroxaban 20 mg tablet (Xarelto) 20 mg PO QPM 06/01/25
telmisartan 80 mg tablet 80 mg PO DAILY 06/01/25
therapeutic multivitamin 1 tab PO DAILY 06/01/25
Review of Systems
-
History Source: Patient
A 12 point ROS was completed and negative except as noted: Yes
Constitutional: Denies Fever or Chills
EENT: Reports Runny Nose (Chronic); Denies Sore Throat
Respiratory: Reports Trouble Breathing and Other (BALDWIN with activity); Denies Cough
Cardiac: Denies Chest Pain or Syncope
Abdomen/GI: Reports Abdominal Pain (Epigastric pain for a few weeks) and Black Stools (Black stool 3 to 5 days on Xarelto); Denies Nausea, Vomiting, Diarrhea or Constipated
: Denies Dysuria, Frequency, Flank Pain, Incontinence or Difficulty Voiding
Musculoskeletal: Denies Joint Pain or Edema
Skin: Denies Itching or Rash
Neurological: Denies Dizzy or Headache
Endocrine: Reports No Symptoms
Hematologic/Lymphatic: Reports No Symptoms
Psych: Reports Calm
Physical Exam
Vital Signs
Vital Signs
Temp Pulse Resp BP Pulse Ox
97.5 F 62 19 138/53 96
06/01/25 12:23 06/01/25 13:15 06/01/25 13:15 06/01/25 13:00 06/01/25 13:15
Physical Exam
General: No Pain, Fever or Chills
HEENT: NormoCephalic, Anicteric, Moist mucous membranes, PERRLA, [place] Conjunctivae and No Ptosis
Respiratory: Clear; No Wheezes, Rales or Rhonchi
Cardiac: S1/S2, Bradycardia (Sinus bradycardia 57 bpm) and Murmur (3/6 systolic murmur); No Rub, Gallop or Peripheral Edema
GI: Soft, Non Distended, Normal Bowel Sounds, Tender (Epigastric area) and No Hepatosplenomegaly
Rectal: Hem Positive (Dark brown heme positive in ER by ER provider)
Genito-urinary: Deferred by me
Musculoskeletal: No Clubbing, No Cyanosis and No Edema
Skin: Warm, Dry and Other (Herbens nodes present to all DIP joints of fingers with history of osteoarthritis); No Rash
Neuro: AO x 3, No Motor Deficits, Nonfocal/grossly intact, Cranial Nerves Intact and No Sensory Deficits; No Slurred Speech, Facial Droop or Tremors
Psych: Calm
Laboratory Results
-
06/01/25 11:54
Laboratory Results
PT 15.5 Sec (11.4-14.6) H 06/01/25 11:54
INR 1.17 06/01/25 11:54
APTT 32.9 Sec (23.4-35.0) 06/01/25 11:54
Total Bilirubin 0.4 mg/dl (0.2-1.3) 06/01/25 11:54
AST 25 U/L (14-36) 06/01/25 11:54
ALT 10 U/L (0-35) 06/01/25 11:54
Alkaline Phosphatase 51 U/L (38-126) 06/01/25 11:54
Troponin I < 0.012 ng/ml 06/01/25 11:54
Impression/Plan
-
Impression/plan:
Admit to telemetry
# GI bleed on Xarelto concern for AVM
# Lower GI bleed on Xarelto 06/20/2022
#GI bleed due to gastric ulcers 2017
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
- Started Xarelto 1 week ago history of black tarry stools at home
Heme positive dark brown stool today in ER
Hgb 9.3 <12.6 on 04/28/2025
Last dose of Xarelto was on 05/30/2025
-Clears today
- N.p.o. after midnight for EGD tomorrow 06/02/2025
- Hold Xarelto, fish oil
- IV PPI twice daily
- Consult GI
- Obtain blood consent
- Follow H&H
EGD 06/19/2022: Mild Schatzki ring, small hiatal hernia normal duodenum no specimens collected
Colonoscopy 06/20/2022: Multiple diverticula found in the entire colon, internal hemorrhoids found during retroflexion, diverticulosis entire colon
EKG: Sinus bradycardia 57 bpm with incomplete LBBB no change from January 27, 2025, QTc 486 MS
#Sinus bradycardia
-Hold amiodarone and metoprolol
#Paroxysmal A-fib
Patient due for upcoming Watchman/ablation procedure with [facility] cardiology on 06/27/2025
-Hold Xarelto
-Hold amiodarone 200 mg daily as current heart rate 57 bpm
- Consult [facility] cardiology
2D echo 03/31/2024: EF 75%, hyperdynamic LVSF, stage II diastolic dysfunction, mild MR
# LBBB hx
# HTN
-Hold metoprolol succinate 25 mg every afternoon as patient is bradycardic
- Continue telmisartan 80 mg daily, amlodipine 5 mg every afternoon with hold parameters
# HLD
Hold atorvastatin 20 mg at bedtime
#Hypothyroidism
-Continue levothyroxine 50 mcg p.o. daily
#Former smoker
30-year 1/2 pack/day quit age 48
Other PMH:
Osteoarthritis
Osteopenia
Bladder CA status post procedure 2022
DVT prophylaxis
Hold current Xarelto last dose was 05/30/2025 2 days ago
SCDs
Full code
--- NOTE | 2025-06-01 14:25 | W.PN.UPDATE ---
Update Note
Progress Note Update
This note serves as an addendum to the H&P by interventional neuroradiologist CHONG�
Lila Renuka
HPI
85F Assisted living resident. Former smoker, occasinal ETOH use, HX GIB, Prx AF , Linq labour market economist implanted, Ablation, HTN, Hypercholesterolemia and Hypothyroidism seen at ER:
- evaluation for shortness of breath with exertion along with dark tarry stools.
- Recently started on 05/20/25 Xarelto by insurance solicitor Barney in anticipation of watchman/ablation at the end of the month -
- HX GIB presumed related to AVM, diverticular bleeding.
- shortly after initiating her Xarelto her stools changed in color and consistency to more of a dark tarry consistency.
ROS
- denies any BRBPR
- feeling of shortness of breath with any exertion over the last 2 days.
- No prior history of ACS.
- has been eating and drinking without any difficulty.
- denies any syncope or trauma.
- denies chest pain
Relevant VS
Temp Pulse Resp BP Pulse Ox
97.5 F 62 19 138/53 96
06/01/25 12:23 06/01/25 13:15 06/01/25 13:15 06/01/25 13:00 06/01/25 13:15
PE
Gen: pleasant , not toxic
HEENT: nl speech
Neck: supple
Lungs: CTA
Cor:
Abdomen:�
RASHAAD at ER- Rectal today had dark brown stool, strongly heme positive.
INSURANCE VERIFICATION REPRESENTATIVE: AAO3
MS:no edema
Psych: Normal affect
Relevant data�
04/28/25 06/01/25
09:20 10:48
Hgb 12.6 9.3 L
MCV 88.5 88.4
Plt Count 235 214
04/28/25 06/01/25
09:20 11:54
INR 1.17
BUN 20 H 23 H
Creatinine 0.8 0.9
eGFR > 60.00 > 60.00
Troponin I < 0.012
EKG
SINUS BRADYCARDIA
INCOMPLETE LEFT BUNDLE BLOCK
LEFT VENTRICULAR HYPERTROPHY WITH REPOLARIZATION ABNORMALITY ( [place] product
)
QTcB >= 480 msec
ABNORMAL ECG
WHEN COMPARED WITH ECG OF 27-Jan-2025 06:45,
NO SIGNIFICANT CHANGE WAS FOUND
Confirmed by COLLEEN LEIJA MD ([id number]) on 06/01/2025 12:33:31 PM
ASSESSMENT & PLAN
Acute dark brown stool strongly HoB POS GIB associated with Xarelto - presumed acute UGIB
Dyspnea with acute anemia
- associated ACBL anemic Hgb ( 9.3) from 12.6 ( 04/28/25)
- hemodynamically stable
- HX recurrent GIB ( AVM, Diverticular GI bleed
- hold Xarelto - last dose was 05/30/25
- NPO except sips and IVF
- s/p IV PPI daily
- T & S
- Trend H & H
- Blood consented
- Goal of Blood Tx - if Hgb < 8
- GI consult
Currently in NSR, SB on Amiodarone
HX Prx AF - on Amiodarone
- Hold Xarelto due to acute GIB
- pending watchman/ablation
- [facility] card consult
Known HX
Iron deficiency anemia
Essential HTN HTN - hold BP meds
DVT Px: SCD
Full code
IP TLM
--- NOTE | 2025-06-01 15:44 | CON.CAR ---
Addendum entered and electronically signed by Bo Bryant DO 06/01/25 17:17:
I saw and examined the patient.
The Processing Clerk's note was reviewed and I agree with the note.
Comment:
Patient is a pleasant 85-year-old female with symptomatic paroxysmal atrial fibrillation with prior PVI and 2020 with recurrence. Patient follows with Dr. Luis Miguel Joseph and is planned for PVI plus Watchman implantation due to her recurrent GI
bleed. Patient recently resumed anticoagulation in preparation for upcoming ablation procedure and watchman. Unfortunately, patient presenting today with decreased hemoglobin and black stools with abdominal discomfort. Additionally, patient
reporting increasing shortness of breath with activity and exertion.
GENERAL: no acute distress
EYE: sclera anicteric
NECK: Supple, no JVD, no carotid bruit appreciated
ENT: normal nose, moist mucosal membranes
CARDIAC: Bradycardic rate and regular rhythm, +S1/S2, 2/6 systolic murmur; no rubs, or gallops
CHEST/PULMONARY: Normal effort, clear breath sounds
ABDOMEN: Soft, without focal tenderness or distention
NEUROLOGICAL: Alert and oriented x3
SKIN: Warm and dry, no rash
PSYCH: Normal and appropriate interaction.
Telemetry sinus bradycardia; EKG sinus bradycardia LVH 57 bpm QRS duration 108 ms
Patient tentatively scheduled for ablation with Watchman June 27 due to symptomatic paroxysmal atrial fibrillation and recurrent GI bleed. Patient remains excellent candidate for both however, given patient's recurrent GI bleed, appreciate input
by GI team. Ideally, source for patient's recurrent bleeding identified and treated allowing for reinitiation of anticoagulation at least 21 days prior to procedure. Additionally, patient can have ZENIA 2-3 days prior to ablation to ensure no left
atrial appendage thrombus prior to procedure. Patient would still require anticoagulation post procedure. For now, hold anticoagulation and monitor on telemetry. Appreciate as mentioned input by GI team and service for treatment of GI bleed.
Further recommendations to follow during this admission
Original Note:
Consultation
Consultation Request
Date/Time Consultation Requested: 06/01/2025
Date/Time Consultation Performed: 06/01/2025
Requesting Provider: Dr. Soto
Performing Provider: Dr. Grajeda
Reason for Consultation: GIB on OAC for planned ablation and Watchman
Medical History
-
History of Present Illness:
Patient came to the ER today with concern for GIB and cardiology is consulted due to OAC for arrhythmia and upcoming ablation and Watchman procedures. Patient was seen in the office on 05/03/2025 to discuss paroxysmal A-fib following recurrences in
November and January of this year that led to increased amiodarone dosing. Patient was interested in ablation and also Watchman procedure due to her recurrent GIB. Patient had diverticulosis on the colonoscopy in 2017 and then had bleeding AVMs in her
stomach treated with APC in 2018. Patient was not chronically taking OAC due to recurrent GIB, but following her 05/03/2025 office visit she was willing to restart OAC in the form of Xarelto 20 mg daily for 30 days prior to procedure and then to
continue for another 3 months following procedure. Patient started Xarelto 20 mg daily on 05/22/2025 and within a few days noticed that her stools were darker in color and then they started to look maroon. Her last dose of Xarelto was on 05/30/2025
after she had called our office to report her symptoms and we ordered an urgent CBC.
PMH:
h/o recurrent GIB
Diverticulosis by colonoscopy in 2017
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
Paroxysmal A-fib
Not chronically on OAC due to recurrent GIB
Started taking Xarelto 20 mg daily on 05/22/2025 in anticipation of combined PVI/watchman implant 06/27/2025
last dose of Xarelto 05/30/25
HTN
h/o of GERD
h/o of hypothyroidism
Past Medical History
Past Medical History: Other (See HPI)
Past Surgical History: Other
Social History
Tobacco: Former Smoker
Alcohol: None
Drug: None
Personal:
Living: Alone
Family History
Family History: Other (Father had Parkinson, mother of breast cancer)
Allergies / Home Medications
Allergy/AdvReac Type Severity Reaction Status Date / Time
pollen extracts Allergy Mild itchy Verified 06/01/25 10:58
eyes;
runny nose
apixaban (From Eliquis) Allergy facial Verified 06/01/25 10:58
swelling
�Medication �Instructions �Recorded �Confirmed �Type
cyanocobalamin (vitamin B-12) 1,000 mcg PO DAILY 07/21/17 06/01/25 History
1,000 mcg tablet
polyvinyl alcohol-povidone (PF) 1 drp BOTH EYES BID 07/21/17 06/01/25 History
1.4 %-0.6 % eye drops in a
dropperette (Refresh Classic (PF))
atorvastatin 20 mg tablet 20 mg PO HS 01/18/19 06/01/25 History
pantoprazole 40 mg tablet,delayed 40 mg PO DAILY 12/19/20 06/01/25 History
release
levothyroxine 50 mcg tablet 50 mcg PO DAILY AT 0700 11/02/21 06/01/25 History
metoprolol succinate 25 mg 25 mg PO QPM 11/14/21 06/01/25 History
tablet,extended release 24 hr
clobetasol 0.05 % topical ointment 1 applic topical DAILY 10/09/22 06/01/25 History
amlodipine 5 mg tablet 5 mg PO QPM 01/27/25 06/01/25 History
dupilumab 300 mg/2 mL subcutaneous 300 mg SC QWEEK 01/27/25 06/01/25 History
syringe (Dupixent)
omega-3s 800 mg-dha 186.67 mg-epa 1 cap PO BID 01/27/25 06/01/25 History
560 mg-fish-vit D3 8.33 mcg
capsule (De3 Dry Eye [facility]
Benefits)
Lactobac no.2-Bifidobac no.1-S. 1 cap PO DAILY 06/01/25 06/01/25 History
thermo 112.5 billion cell capsule
(Visbiome)
amiodarone 200 mg tablet 200 mg PO DAILY 06/01/25 06/01/25 History
docusate sodium 100 mg capsule 100 mg PO DAILY 06/01/25 06/01/25 History
(Colace)
rivaroxaban 20 mg tablet (Xarelto) 20 mg PO QPM 06/01/25 06/01/25 History
telmisartan 80 mg tablet 80 mg PO DAILY 06/01/25 06/01/25 History
therapeutic multivitamin 1 tab PO DAILY 06/01/25 06/01/25 History
Review of Systems
-
History Source: Patient
All other systems: Negative unless noted
Physical Exam
Vital Signs
Temp Pulse Resp BP Pulse Ox
97.5 F 62 19 138/53 96
06/01/25 12:23 06/01/25 13:15 06/01/25 13:15 06/01/25 13:00 06/01/25 13:15
GEN: NAD, AAO x 3
HEENT: EOMI, MMM
LUNGS: RA. CTA B/L, no wheeze
CV: Sinus bradycardia on telemetry. Reg, S1/S2, 2/6 murmur
ABD: soft, BS+, NT, ND
EXT: No edema B/L LE
NEURO: Gross non-focal
SKIN: No rash
Lab Results
06/01/25 11:54
Troponin I < 0.012 ng/ml 06/01/25 11:54
Impression / Plan
-
PCP: Babar Burns
Cardio: Dr. Luis Miguel Joseph
Impression:
Admitted with heme positive anemia 06/01/2025
Heme positive anemia
h/o recurrent GIB
Diverticulosis by colonoscopy in 2018
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
Paroxysmal A-fib
Not chronically on OAC due to recurrent GIB
Started taking Xarelto 20 mg daily on 05/22/2025 in anticipation of combined PVI/watchman implant 06/27/2025
last dose of Xarelto 05/30/25
HTN
h/o of GERD
h/o of hypothyroidism
Echo 06/27/2020: EF 75-80%. Moderate LVH. Normal wall motion. Stage II DD. trace MR. normal RV function and size. systolic anterior motion of the anterior mitral valve leaflet. AV appears sclerotic. trace TR with PAP of 20-25 mmHg.
Echo 03/31/2024: EF 75%, resting LVOT gradient 18 mmHg, stage II diastolic dysfunction, normal RV size and function, mild MR with mild systolic anterior motion of the anterior leaflet, thickened aortic valve with normal leaflet excursion
Lexiscan Mibi 07/26/2020: mildly reversible defect in the apical septal, apical inferolateral segments consistent with ischemia vs soft tissue attenuation. fixed basal and mid and inferior and inferolateral defect due to soft tissue attenuation.
Plan:
-Patient came to the ER today with concern for GIB and cardiology is consulted due to OAC for arrhythmia and upcoming ablation and Watchman procedures. Patient was seen in the office on 05/03/2025 to discuss paroxysmal A-fib following recurrences in
November and January of this year that led to increased amiodarone dosing. Patient was interested in ablation and also Watchman procedure due to her recurrent GIB. Patient had diverticulosis on the colonoscopy in 2018 and then had bleeding AVMs in her
stomach treated with APC in 2018. Patient was not chronically taking OAC due to recurrent GIB, but following her 05/03/2025 office visit she was willing to restart OAC in the form of Xarelto 20 mg daily for 30 days prior to procedure and then to
continue for another 3 months following procedure. Patient started Xarelto 20 mg daily on 05/22/2025 and within a few days noticed that her stools were darker in color and then they started to look maroon. Her last dose of Xarelto was on 05/30/2025
after she had called our office to report her symptoms and we ordered an urgent CBC.
-ECG reviewed by me is sinus bradycardia
-Telemetry reviewed by me is sinus bradycardia as well
-Patient with recurrent GIB and was seen by gastroenterology. Last dose of Xarelto was 05/30/2025. Patient has had upper and lower source of bleeding in the past as outlined above. Would like to see patient get upper and lower endoscopy and when
stable resume OAC.
-Patient is currently scheduled for PVI and watchman on 06/27/2025 and she would need minimum 21 days of OAC leading up to that procedure and then need to complete 3 months of OAC postprocedure. Reviewed with the patient that we will leave her on
the schedule for 06/27/2025 for now, but if she cannot restart OAC without interruption her date will have to be pushed back.
-Remains in SR on amiodarone 20 mg daily, would continue that for now. ECG reviewed by me shows QTc 486 ms
--- NOTE | 2025-06-01 16:22 | CM ---
Patient seen in ED. Patient stated that she lives in [facility]. Patient has access to elevators and stated that she does not currently have any VN or supports. Patient uses the [facility] pharmacy on [address] in [place].
Patient PCP is Dr. Vinson and patient plan is for discharge home with VN vs home with no needs. CM will continue to follow for discharge planning needs,
Plan; home with no needs vs VN pending medical treatment plan.
[2025-06-01 17:08] LABS: Iron 26 ug/dl (37-170)
[2025-06-01 17:18] LABS: Total Iron Binding Capacity 342 ug/dl (265-497)
[2025-06-01 18:22] LABS: Ferritin 13.7 ng/ml (11.1-264.0)
--- NOTE | 2025-06-01 18:40 | PTCARENOTE ---
Received patient @ [phone] Patient AA)x3, no c/o pain. Patient ambulated from stretcher to bed with a steady gait. Call owens in reach>
[2025-06-01 18:54] LABS: Folate 19.8 ng/ml (2.76-20); Vitamin B12 > 1000 pg/ml (239-931)
[2025-06-01] MEDS: NSS (PRESERVATIVE FREE) 10 ML IV (20:22)
[2025-06-01] MEDS: PROTONIX IV 40 MG IV (20:22)
[2025-06-02] VITALS (14 sets, daily range): BP systolic 94–158; BP diastolic 32–64
[2025-06-02] MEDS: SYNTHROID 50 MCG PO (06:11)
[2025-06-02 07:53] LABS: Hematocrit 26.6 % (37.0-47.0); Hemoglobin 8.4 g/dL (12.0-16.0); Mean Corp Hgb Conc. 31.6 g/dL (33.0-37.0); Mean Corpuscular Volume 86.4 fL (81.0-99.0); Nucleated Red Blood Cells % 0 %; Platelet Count 180 10^3/uL (130-400); Red Cell Dist. Width 14.6 % (11.5-14.5)
[2025-06-02] MEDS: COZAAR 100 MG PO (08:09)
[2025-06-02] MEDS: NSS (PRESERVATIVE FREE) 10 ML IV ×2 (08:10→19:31)
[2025-06-02] MEDS: PROTONIX IV 40 MG IV ×2 (08:11→19:32)
[2025-06-02 08:24] LABS: ALT (SGPT) < 10 U/L (0-35); AST (SGOT) 23 U/L (14-36); Albumin 3.2 g/dl (3.5-5.0); Alkaline Phosphatase 43 U/L (38-126); Calcium 8.6 mg/dl (8.4-10.2); Carbon Dioxide 28 mmol/L (22-30); Chloride 108 mmol/L (98-107); Estimated Creatinine Clearance 41 ml/min; Glucose 89 mg/dl (70-99); Potassium 4.3 mmol/L (3.5-5.1); Sodium 138 mmol/L (135-145); Total Protein 5.4 g/dl (6.3-8.2); eGFR > 60.00
[2025-06-02 08:34] LABS: Blood Urea Nitrogen 16 mg/dl (7-17)
--- NOTE | 2025-06-02 08:49 | W.PN.HOSP.TC ---
Today's Communication/Plan
-
see plan
Assessment / Plan
Assessment / Plan
Gen: NAD, AAOx3.
Eyes: EOMI, PERRLA, no scleral icterus.
Neck: supple.
CV: RRR, +S1/S2, 2/6 systolic murmur
Resp: CTAB, no rales, wheezes, or rhonchi.
Abd: +BS, soft, NT, ND
Skin: No rashes.
Neuro: CN 2-12 intact, non-focal.
Psych: Normal mood and affect.
ECG: Non-obstructing Schatzki ring. Medium-sized hiatal hernia. One submucosal papule (nodule) found in the stomach. Normal examined duodenum. Two non-bleeding angiodysplastic lesions in the jejunum. No specimens collected.
Acute blood loss anemia due to acute UGIB due to angiodysplastic lesions in the jejunum:
-exacerbated by Xarelto which is on hold
-h/o prior GIBs due to gastric ulcers and AVM
-EGD above
-cont PPI BID
-trend Hb
Other problems:
Sinus bradycardia: home Amio/BB on hold, resume Amio as per discussion with cards
PAF: for Watchman/ablation 06/27/2025, cards following, resume Amio
LBBB
HLD: resume statin
Essential HTN: cont Losartan/Norvasc
Hypothyroidism: cont Levoxyl
FULL/SCDs
Anticipated Discharge: Within 24 hours
Subjective/Interval History
-
Date of Service: June 02, 2025
No new complaints.
Objective Data
-
Labs:
Laboratory Results
06/02/25
07:18
WBC 5.7
Hgb 8.4 L
Hct 26.6 L
Plt Count 180
Sodium 138
Potassium 4.3
Chloride 108 H
Carbon Dioxide 28
BUN 16
Creatinine 0.9
Glucose 89
Calcium 8.6
Total Bilirubin 0.4
AST 23
ALT < 10
Alkaline Phosphatase 43
Vital Signs:
Vital Signs
Temp Pulse Resp BP Pulse Ox
97.9 F 56 17 132/59 96
06/02/25 07:30 06/02/25 08:09 06/02/25 07:30 06/02/25 08:09 06/02/25 07:30
I&O
06/01/25 06/02/25 06/03/25
06:59 06:59 06:59
Intake Total 0 / 0
Balance 0 / 0
[2025-06-02] MEDS: PACERONE 200 MG PO (10:57)
--- NOTE | 2025-06-02 13:23 | W.PN.CARDCBS ---
Addendum entered and electronically signed by Ezequiel Jacob MD 06/02/25 15:02:
85-year-old woman who is scheduled for PVI and watchman implantation in late June, admitted now with GI bleed. Just started on Xarelto 20 mg daily, hypertension, GERD, hypothyroidism
PMH: Recurrent GI bleeding related to gastric AVMs
Current meds: Levothyroxine, losartan 100 mg a day, amlodipine 5 mg a day, pantoprazole 40 mg IV twice daily, amiodarone 200 mg daily
158/64, 97/42, pulse 60,, no acute distress,. Lungs are clear, regular rate and rhythm, soft systolic murmur, abdomen benign extremities without clubbing cyanosis or edema
Chest x-ray June 01, Linq implant
Hemoglobin 8.4, was 12.6 April 08, 9.3 June 01, BUN and creatinine are 16 and 0.9, potassium is 4.3, troponin undetectable
ECG: Sinus bradycardia, LVH with incomplete left bundle branch block and ST changes
EGD today Schatzki's ring, hiatal hernia, 15 mm submucosal papule, 2 angiodysplastic lesions without bleeding in jejunum, no biopsies, capsule recommended, hold Xarelto
Echo 03/31/2024: EF 75%, resting LVOT gradient 18 mmHg, stage II diastolic dysfunction, normal RV size and function, mild MR with mild systolic anterior motion of the anterior leaflet, thickened aortic valve with normal leaflet excursion
Impression:
Admitted with heme positive anemia 06/01/2025
Heme positive anemia
h/o recurrent GIB
Diverticulosis by colonoscopy in 2018
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
Not chronically on OAC due to recurrent GIB
Started taking Xarelto 20 mg daily on 05/22/2025 in anticipation of combined PVI/watchman implant 06/27/2025
last dose of Xarelto 05/30/25HTN
h/o of GERD
h/o of hypothyroidism
Plan:
Note below reviewed in detail and agree, unless otherwise specified.
She is in sinus rhythm, and seems improved off Xarelto. Short-term risk of stroke at present is low.
Unfortunately, getting her to PVI with watchman placement is very challenging at present.
It has been recommended by GI that we continue to hold Xarelto, which is appropriate. Capsule study is apparently the next step.
Defer management of anemia to GI and hospitalist. At present, hemoglobin is acceptable.
Continue amiodarone. Continue to hold Xarelto. Fortunately, since amiodarone was increased from 100 to 200 mg daily in the spring she has not had recurrent atrial fibrillation.
Okay to proceed with discharge planning from cardiac standpoint. We will arrange for outpatient cardiac follow-up.
Original Note:
Today's Communication / Plan
-
Hold oral anticoagulation
will need to push back PVI and Watchman given GI bleed, not able to tolerate OAC at this time
Impression / Plan
-
PCP: Babar Allen is status post endoscopy today: Nonobstructive Schatzki's ring, medium size hiatal hernia, 1 submucosal papule, 2 nonbleeding angiodysplastic lesions in jejunum, normal examined duodenum.
GI advised capsule endoscopy as outpatient, hold Xarelto given recurrent bleeding
Cardio: Dr. Luis Miguel Joseph
Impression:
Admitted with heme positive anemia 06/01/2025
Heme positive anemia
h/o recurrent GIB
Diverticulosis by colonoscopy in 2017
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
Paroxysmal A-fib
Not chronically on OAC due to recurrent GIB
Started taking Xarelto 20 mg daily on 05/22/2025 in anticipation of combined PVI/watchman implant 06/27/2025
last dose of Xarelto 05/30/25
HTN
h/o of GERD
h/o of hypothyroidism
Echo 06/27/2020: EF 75-80%. Moderate LVH. Normal wall motion. Stage II DD. trace MR. normal RV function and size. systolic anterior motion of the anterior mitral valve leaflet. AV appears sclerotic. trace TR with PAP of 20-25 mmHg.
Echo 03/31/2024: EF 75%, resting LVOT gradient 18 mmHg, stage II diastolic dysfunction, normal RV size and function, mild MR with mild systolic anterior motion of the anterior leaflet, thickened aortic valve with normal leaflet excursion
Lexiscan Mibi 07/26/2020: mildly reversible defect in the apical septal, apical inferolateral segments consistent with ischemia vs soft tissue attenuation. fixed basal and mid and inferior and inferolateral defect due to soft tissue attenuation.
Plan:
-Patient came to the ER 06/01 another with concern for GIB and cardiology is consulted due to OAC for arrhythmia and upcoming ablation and Watchman procedures. Patient was seen in the office on 05/03/2025 to discuss paroxysmal A-fib following
recurrences in November and January of this year that led to increased amiodarone dosing. Patient was interested in ablation and also Watchman procedure due to her recurrent GIB. Patient had diverticulosis on the colonoscopy in 2017 and then had
bleeding AVMs in her stomach treated with APC in 2018. Patient was not chronically taking OAC due to recurrent GIB, but following her 05/03/2025 office visit she was willing to restart OAC in the form of Xarelto 20 mg daily for 30 days prior to
procedure and then to continue for another 3 months following procedure. Patient started Xarelto 20 mg daily on 05/22/2025 and within a few days noticed that her stools were darker in color and then they started to look maroon. Her last dose of
Xarelto was on 05/30/2025 after she had called our office to report her symptoms and we ordered an urgent CBC.
-Hemoglobin 9.3 on admission 06/01/2025, 8.4 today.
--Patient with recurrent GIB and was seen by gastroenterology. Patient has had upper and lower source of bleeding in the past as outlined above.
-She is status post endoscopy today: Nonobstructive Schatzki's ring, medium size hiatal hernia, 1 submucosal papule, 2 nonbleeding angiodysplastic lesions in jejunum, normal examined duodenum.
GI advised capsule endoscopy as outpatient, hold Xarelto given recurrent bleeding
-Telemetry reviewed by me is normal sinus rhythm, sinus bradycardia 50s to 60s
-Patient is currently scheduled for PVI and watchman on 06/27/2025 and she would need minimum 21 days of OAC leading up to that procedure (would need to start OAC on 06/06 for 06/27 procedure) and then need to complete 3 months of OAC postprocedure.
At this time we will plan to discharge (probably tomorrow) off OAC and have her f/u in the office to further discuss dates for Watchman and PVI if eventually able to restart OAC
-Remains in SR on amiodarone 200 mg daily, would continue that for now. ECG 06/01 QTc 486 ms
Progress Note - Nurse Emergency
Subjective
Date of Service: June 02, 2025
EGD today, no obvious source of bleeding. Outpatient capsule endoscopy advised.
Remains in sinus rhythm
No shortness of breath or chest pain but has not exerted herself.
Objective
Labs:
06/02/25 07:18
06/02/25 07:18
Labs
Hgb 8.4 g/dL (12.0-16.0) L 06/02/25 07:18
Hct 26.6 % (37.0-47.0) L 06/02/25 07:18
Plt Count 180 10^3/uL (130-400) 06/02/25 07:18
PT 15.5 Sec (11.4-14.6) H 06/01/25 11:54
INR 1.17 06/01/25 11:54
APTT 32.9 Sec (23.4-35.0) 06/01/25 11:54
Sodium 138 mmol/L (135-145) 06/02/25 07:18
Potassium 4.3 mmol/L (3.5-5.1) 06/02/25 07:18
BUN 16 mg/dl (7-17) 06/02/25 07:18
Creatinine 0.9 mg/dL (0.6-1.0) 06/02/25 07:18
Glucose 89 mg/dl (70-99) 06/02/25 07:18
Troponins
06/01/25
11:54
Troponin I < 0.012
Vital Signs and I&O:
Vital Signs
Temp Pulse Resp BP Pulse Ox
97.7 F 62 16 146/62 97
06/02/25 12:45 06/02/25 12:45 06/02/25 12:45 06/02/25 12:45 06/02/25 12:45
Vital Signs
Temp Pulse Resp BP Pulse Ox
97.7 F 62 16 146/62 97
06/02/25 12:45 06/02/25 12:45 06/02/25 12:45 06/02/25 12:45 06/02/25 12:45
Intake & Output
05/31/25 06/01/25 06/02/25 06/03/25
06:59 06:59 06:59 06:59
Intake Total 0 / 0
Balance 0 / 0
Physical Exam
Physical Exam
GEN: No distress, awake, Ox3
HEENT: supple, anicteric, mmm
LUNGS: Few rales at bases
CV: Reg, S1/S2, 2 / 6 systolic murmur
ABD: soft, BS+, NT/ND
EXT: No edema
NEURO: Gross non-focal
SKIN: No rash
[2025-06-02] MEDS: ROBITUSSIN DM 5 ML PO (18:29)
[2025-06-03 03:02] VITALS: BP 134/51
[2025-06-03] MEDS: SYNTHROID 50 MCG PO (04:52)
[2025-06-03 07:20] VITALS: BP 163/68
--- NOTE | 2025-06-03 08:48 | W.PN.HOSP.TC ---
Addendum entered and electronically signed by Tao Crain MD 06/03/25 11:29:
case discussed with cardiology, BB restarted as per cards.
Original Note:
Today's Communication/Plan
-
d/c
Assessment / Plan
Assessment / Plan
Gen: NAD, AAOx3.
Eyes: EOMI, PERRLA, no scleral icterus.
Neck: supple.
CV: remains RRR, +S1/S2, 2/6 systolic murmur
Resp: remains CTAB, no rales, wheezes, or rhonchi.
Abd: remains +BS, soft, NT, ND
Skin: No rashes.
Neuro: CN 2-12 intact, non-focal.
Psych: Normal mood and affect.
EGD: Non-obstructing Schatzki ring. Medium-sized hiatal hernia. One submucosal papule (nodule) found in the stomach. Normal examined duodenum. Two non-bleeding angiodysplastic lesions in the jejunum. No specimens collected.
Acute blood loss anemia due to acute UGIB due to angiodysplastic lesions in the jejunum:
-exacerbated by Xarelto which is on hold
-h/o prior GIBs due to gastric ulcers and AVM
-EGD above
-cont PPI BID
-Hb stable at 9.9
Other problems:
Sinus bradycardia: cont Amio, BB stopped
PAF: was for Watchman/ablation 06/27/2025 (will likely be delayed as pt will be off Xarelto), cards following, cont Amio
LBBB
HLD: resume statin
Essential HTN: cont Losartan/Norvasc
Hypothyroidism: cont Levoxyl
FULL/SCDs
Discussed with cards/GI, medically cleared for d/c.
Total time spent on d/c = 31 min. This included today's physical exam, progress note, review of laboratory and diagnostic data, preparation of discharge documents and prescriptions, and discussions about the pt's hospital course and discharge plan
with the patient and other medical collector involved in the patient's care.
Anticipated Discharge: Today
Subjective/Interval History
-
Date of Service: June 03, 2025
No new complaints. No BM since EGD.
Objective Data
-
Labs:
Laboratory Results
06/03/25
08:29
WBC Pending
Hgb Pending
Hct Pending
Plt Count Pending
Sodium Pending
Potassium Pending
Chloride Pending
Carbon Dioxide Pending
BUN Pending
Creatinine Pending
Glucose Pending
Calcium Pending
Total Bilirubin Pending
AST Pending
ALT Pending
Alkaline Phosphatase Pending
Vital Signs:
Vital Signs
Temp Pulse Resp BP Pulse Ox
98.1 F 58 18 134/51 96
06/03/25 03:02 06/03/25 03:02 06/03/25 03:02 06/03/25 03:02 06/03/25 03:02
I&O
06/02/25 06/03/25 06/04/25
06:59 06:59 06:59
Intake Total 0 / 0 1020 / 1020
Balance 0 / 0 1020 / 1020
[2025-06-03] MEDS: PACERONE 200 MG PO (08:59)
[2025-06-03] MEDS: COZAAR 100 MG PO (08:59)
[2025-06-03] MEDS: NSS (PRESERVATIVE FREE) 10 ML IV (08:59)
[2025-06-03] MEDS: PROTONIX IV 40 MG IV (08:59)
[2025-06-03 09:02] LABS: Hematocrit 31.8 % (37.0-47.0); Hemoglobin 9.9 g/dL (12.0-16.0); Mean Corp Hgb Conc. 31.1 g/dL (33.0-37.0); Mean Corpuscular Volume 87.4 fL (81.0-99.0); Nucleated Red Blood Cells % 0 %; Platelet Count 242 10^3/uL (130-400); Red Cell Dist. Width 14.4 % (11.5-14.5)
[2025-06-03 09:43] LABS: ALT (SGPT) 11 U/L (0-35); AST (SGOT) 28 U/L (14-36); Albumin 3.9 g/dl (3.5-5.0); Alkaline Phosphatase 51 U/L (38-126); Blood Urea Nitrogen 18 mg/dl (7-17); Calcium 8.9 mg/dl (8.4-10.2); Carbon Dioxide 27 mmol/L (22-30); Chloride 108 mmol/L (98-107); Estimated Creatinine Clearance 41 ml/min; Glucose 134 mg/dl (70-99); Potassium 4.0 mmol/L (3.5-5.1); Sodium 141 mmol/L (135-145); Total Protein 6.3 g/dl (6.3-8.2); eGFR > 60.00
--- NOTE | 2025-06-03 11:10 | W.PN.CARDCBS ---
Addendum entered and electronically signed by Ezequiel Jacob MD 06/03/25 18:05:
Note below reviewed in detail and agree, unless otherwise specified
Medications: Reviewed
150/67, pulse 62, respiratory rate 16, afebrile, sats 96%
Hemoglobin 9.9 platelets 242, CO2 is 27, BUN and creatinine are 18 and 0.9
Impression:
Admitted with heme positive anemia 06/01/2025
Heme positive anemia
h/o recurrent GIB
Diverticulosis by colonoscopy in 2018
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
Started taking Xarelto 20 mg daily on 05/22/2025 in anticipation of combined PVI/watchman implant 06/27/2025
last dose of Xarelto 05/30/25HTNh/o of GERD
h/o of hypothyroidism
Plan:
Okay for discharge from cardiac standpoint.
Discharge off anticoagulation. She is in sinus rhythm on amiodarone and off Xarelto.
If anticoagulation is to be restarted, consider Eliquis in place of Xarelto, with lower GI bleeding risk.
Original Note:
Today's Communication / Plan
-
d/c today off OAC
cardiac f/u arranged
GI f/u in process of being arranged
Impression / Plan
-
PCP: Babar Burns
Primary radiation physicist Dr Tim Joseph
Impression:
Admitted with heme positive anemia 06/01/2025
Heme positive anemia
h/o recurrent GIB
Diverticulosis by colonoscopy in 2017
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
Paroxysmal A-fib
Not chronically on OAC due to recurrent GIB
Started taking Xarelto 20 mg daily on 05/22/2025 in anticipation of combined PVI/watchman implant 06/27/2025
last dose of Xarelto 05/30/25
HTN
h/o of GERD
h/o of hypothyroidism
Echo 06/27/2020: EF 75-80%. Moderate LVH. Normal wall motion. Stage II DD. trace MR. normal RV function and size. systolic anterior motion of the anterior mitral valve leaflet. AV appears sclerotic. trace TR with PAP of 20-25 mmHg.
Echo 03/31/2024: EF 75%, resting LVOT gradient 18 mmHg, stage II diastolic dysfunction, normal RV size and function, mild MR with mild systolic anterior motion of the anterior leaflet, thickened aortic valve with normal leaflet excursion
Lexiscan Mibi 07/26/2020: mildly reversible defect in the apical septal, apical inferolateral segments consistent with ischemia vs soft tissue attenuation. fixed basal and mid and inferior and inferolateral defect due to soft tissue attenuation.
Plan:
-Patient came to the ER 06/01 another with concern for GIB and cardiology is consulted due to OAC for arrhythmia and upcoming ablation and Watchman procedures. Patient was seen in the office on 05/03/2025 to discuss paroxysmal A-fib following
recurrences in November and January of this year that led to increased amiodarone dosing. Patient was interested in ablation and also Watchman procedure due to her recurrent GIB. Patient had diverticulosis on the colonoscopy in 2017 and then had
bleeding AVMs in her stomach treated with APC in 2019. Patient was not chronically taking OAC due to recurrent GIB, but following her 05/03/2025 office visit she was willing to restart OAC in the form of Xarelto 20 mg daily for 30 days prior to
procedure and then to continue for another 3 months following procedure. Patient started Xarelto 20 mg daily on 05/22/2025 and within a few days noticed that her stools were darker in color and then they started to look maroon. Her last dose of
Xarelto was on 05/30/2025 after she had called our office to report her symptoms and we ordered an urgent CBC.
-She is status post endoscopy today: Nonobstructive Schatzki's ring, medium size hiatal hernia, 1 submucosal papule, 2 nonbleeding angiodysplastic lesions in jejunum, normal examined duodenum.
GI advised capsule endoscopy as outpatient, hold Xarelto given recurrent bleeding
-Hemoglobin 9.3 on admission 06/01/2025, 8.4 06/02, 9.9 06/03/2025
-Telemetry reviewed by me is normal sinus rhythm, sinus bradycardia 60-80s.
-Patient is currently scheduled for PVI and watchman on 06/27/2025 and ideally would need minimum 21 days of OAC leading up to that procedure and then need to complete 3 months of OAC postprocedure. At this time plan for expedited outpt f/u with GI
(sees Dr Fuller in outpt setting). His Office is already aware that pt needs expedited f/u and will call her with apptmt. She will f/u in our office prior to Watchman/PVI. Made apptimt in our office for 06/16 with me/Dr Dumont. If okay to resume
Xarelto per GI, could resume at least 1 week prior to Watchman/PVI and get ZENIA a day or 2 prior to procedure to exclude BOB clot.
OK for discharge today 06/03 off OAC and have her f/u in the office as above
-resume usual antihypertensives including metoprolol succinate
Progress Note - Environmental Services Manager
Subjective
Date of Service: June 03, 2025
no further bleeding
Objective
Labs:
06/03/25 08:29
06/03/25 08:29
Labs
Hgb 9.9 g/dL (12.0-16.0) L 06/03/25 08:29
Hct 31.8 % (37.0-47.0) L 06/03/25 08:29
Plt Count 242 10^3/uL (130-400) D 06/03/25 08:29
PT 15.5 Sec (11.4-14.6) H 06/01/25 11:54
INR 1.17 06/01/25 11:54
APTT 32.9 Sec (23.4-35.0) 06/01/25 11:54
Sodium 141 mmol/L (135-145) 06/03/25 08:29
Potassium 4.0 mmol/L (3.5-5.1) 06/03/25 08:29
BUN 18 mg/dl (7-17) H 06/03/25 08:29
Creatinine 0.9 mg/dL (0.6-1.0) 06/03/25 08:29
Glucose 134 mg/dl (70-99) H 06/03/25 08:29
Troponins
06/01/25
11:54
Troponin I < 0.012
Vital Signs and I&O:
Vital Signs
Temp Pulse Resp BP Pulse Ox
98.5 F 63 18 163/68 97
06/03/25 07:20 06/03/25 07:20 06/03/25 07:20 06/03/25 07:20 06/03/25 07:20
Vital Signs
Temp Pulse Resp BP Pulse Ox
98.5 F 63 18 163/68 97
06/03/25 07:20 06/03/25 07:20 06/03/25 07:20 06/03/25 07:20 06/03/25 07:20
Intake & Output
06/01/25 06/02/25 06/03/25 06/04/25
06:59 06:59 06:59 06:59
Intake Total 0 / 0 1020 / 1020
Balance 0 / 0 1020 / 1020
Physical Exam
Physical Exam
GEN: No distress, awake, Ox3
HEENT: supple, anicteric, mmm
LUNGS: CTA, no wheezes/rales
CV: Reg, S1/S2, 3/6 syst murmur heard t/o precordium
ABD: soft, BS+, NT/ND
EXT: tr edema
NEURO: Gross non-focal
SKIN: No rash
--- NOTE | 2025-06-03 11:30 | CM ---
Met with patient at bedside; IMM signed 06/01/25; patient reported that cousin will provide transport home; VN offered; patient declined
Plan: Discharge to home today; no needs
--- NOTE | 2025-06-03 11:34 | W.PN.GI.CBS2 ---
Addendum entered and electronically signed by Clemencia Patel MD 06/03/25 13:40:
I saw and examined the patient.
The WINDER CONTORT OPERATOR or PA's note was reviewed and I agree with the note.
Comment: 85-year-old female with A-fib on Xarelto presenting with recurrent GI bleeding found to have jejunal AVMs not treated yesterday.
Hemoglobin stable. Per Dr. Leach plan for capsule endoscopy outpatient. Discussed with patient capsule endoscopy including need for prep, risk for capsule retention. Anali has set this up with the office. Message sent to office to push up her
outpatient appointment as well, follows up with Dr. Fuller. Discussed with hospitalist. Plan for Protonix daily. Recommend CBC in 1 week. Patient being discharged today.
Original Note:
Today's Communication / Plan
-
as per plan
Assessment / Plan
-
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
post EGD, enteroscopy and colonoscopy and distant hx capsule. She has recently been off anticoagulation and was working with cardiology for possible watchman in June. She did Xarelto trial prior to procedure from 05/22 with onset of dark
stools about 3-4 days after starting with shortness of breath. She states she was having about 1 stool daily. She came for blood work and while at [facility] presented to ER for evaluation as was not feeling well. On admission hbg was 9.3 with
last hbg 12.6 on 04/28/25. Pt also admits to periods of afib and chest pain with cardiology evaluation during admission. She also admits to constipation at time. She otherwise denies odynophagia, dysphagia, GERD, nausea, vomiting, abdominal
pain, diarrhea, or red stool. No NSAID use heme + brown stool in ER.
06/02/25 Enteroscopy ([facility]) non obs schatzkis ring, medium HH, one sub mucosal papule stomach, 2 non bleeding jejunal AVM
06/2022- [facility]- colonoscopy- diverticulosis, hemorrhoid
06/2022- [facility] EGD-mild schatzki's ring, small HH, normal duodenum
12/2018- EGD Do - Normal esophagus. - Old dark blood in the gastric body. - Two recently bleeding AVM in the stomach at lesser curvature and 1 bleeding AVM near pyloric channel Treated with argon plasma coagulation (APC) with good hemostasis - The
examined duodenum and proximal jejunum had old black blood refluxed. After irrigation mucosa underneath was normal appearing.
05/2018-colonoscopy- salguti - Preparation of the colon was fair. stool in colon diverticulosis, IH
05/2018 EGD - Normal esophagus.small HH, bilious gastric fluid - Erythematous duodenopathy. normal duodenum and jejunum
07/2017- EGD normal mild antral gastritis, non bleeding angioectasia in duodenum, s/p APC, normal third portion, normal proximal jejunum
07/2017- EGD - Normal gastroesophageal junction - Z-line regular, 38 cm from the incisors- Erythematous mucosa in the gastric fundus, gastric body and antrum - Normal first portion of the duodenum - No specimens collected.
03/2017- capsule- per office not normal
Impresssion:
-Iron deficiency anemia chronic blood loss
-afib on Xarelto (last dose 05/30/25), planned Watchman 06/27/25
other med problems:
-bladder CA with TURBT
- HTN
- hyperlipidemia
- hypothyroidism
- NIDDM
-constipation
-diverticulosis
-hemorrhoids
PLAN:
-Continue Pantoprazole 40 mg daily
-AC on hold
-Placed order and sent message to our office to arrange outpatient Video Capsule Endoscopy (patient should receive call be early next week)
-Will move up follow up with Dr. Fuller, sent message to our office. Discussed with Cardiology, as they are trying to continue with plan for Watchman on 06/27/25.
-Ok to DC from GI perspective.
Subjective
Subjective
Date of Service: June 03, 2025
Patient without any BM since EGD. Hgb stable at 9.9. Had 2 small non bleeding AVM in jejunum. Tolerating solid diet without any difficulty. Xarelto on hold. Arranging to have outpatient VCE (sent message to office and placed order) and then will
also facilitate follow up after. Discussed with Cardiology as they are trying to keep scheduled Watchman on 06/27/25.
Objective
Data Reviewed
Laboratory Data:
Laboratory Results
06/03/25 08:29
06/03/25 08:29
Laboratory Results
PT 15.5 Sec (11.4-14.6) H 06/01/25 11:54
INR 1.17 06/01/25 11:54
APTT 32.9 Sec (23.4-35.0) 06/01/25 11:54
Total Bilirubin 0.3 mg/dl (0.2-1.3) 06/03/25 08:29
AST 28 U/L (14-36) 06/03/25 08:29
ALT 11 U/L (0-35) 06/03/25 08:29
Alkaline Phosphatase 51 U/L (38-126) 06/03/25 08:29
Vital Signs and I&O:
Vital Signs
Temp Pulse Resp BP Pulse Ox
98.5 F 63 18 163/68 97
06/03/25 07:20 06/03/25 07:20 06/03/25 07:20 06/03/25 07:20 06/03/25 07:20
I&O
06/02/25 06/03/25 06/04/25
06:59 06:59 06:59
Intake Total 0 / 0 1020 / 1020
Balance 0 / 0 1020 / 1020
Physical Exam
Physical Exam
HEENT: Anicteric
Cardiology: Normal Sinus Rhythm and Murmur
Pulmonary: Clear
GI: Soft, Non Distended, Non Tender and Normal Bowel Sounds
Neuro: Non Focal
[2025-06-03 11:35] VITALS: BP 150/67
--- NOTE | 2025-06-03 12:39 | W.DCSUMMARY ---
Discharge Summary
Discharge Data
Date of Admission: 06/01/25
Date of Discharge: 06/03/25
-
Pending Results: No
Hospital Course
Primary diagnoses:
Acute blood loss anemia due to acute UGIB due to angiodysplastic lesions in the jejunum exacerbated by Xarelto
Secondary diagnoses:
Sinus bradycardia
Paroxysmal atrial fibrillation
Left bundle branch block
Hyperlipidemia
Essential hypertension
Hypothyroidism
Consultants:
Cardiology
Gastroenterology
Imaging/Procedures:
EGD: Non-obstructing Schatzki ring. Medium-sized hiatal hernia. One submucosal papule (nodule) found in the stomach. Normal examined duodenum. Two non-bleeding angiodysplastic lesions in the jejunum. No specimens collected.
Hospital course: 85-year-old female who presented with chief complaints of melena and epigastric pain as outlined in the H&P dictated at the time of admission. Hb on admission was 9.3 and was stable. Xarelto was held. The patient had a history of
prior GIBs due to gastric ulcers and AVM. EGD above. Patient was discharged in medically stable condition off of Xarelto.
Discharge Plan
-
Patient Disposition: Home (Routine Discharge)
Discharge Diagnosis/Procedures: Acute blood loss anemia due to acute UGIB due to angiodysplastic lesions in the jejunum exacerbated by Xarelto
Condition: Good
Diet: Other diet
Additional Diets: heart healthy
Activity: As tolerated
Driving Restrictions: As prior to admission
Blood Work: BMP and CBC in 1 week, script from PCP
Referrals:
Otto Vinson DO [Family Provider, Family Practice]
Mariluz Holley CRNP [Specified Professional Personl, Cardiology] - 06/16/25 4:00 pm
Referral Note: you have an appointment with Dr Joseph's nurse practitioner Mariluz at the [place] office. Dr Joseph will also be in the office that day.
Prescriptions:
New
metoprolol succinate 25 mg Tablet Extended Release 24 Hr
25 mg PO DAILY Qty: 30 0RF
Continued
cyanocobalamin (vitamin B-12) 1,000 MCG tablet
1,000 mcg PO DAILY
Refresh Classic (PF) 10 DROPS dropperette
1 drp BOTH EYES BID
atorvastatin 20 MG tablet
20 mg PO HS
pantoprazole 40 MG tablet,delayed release (DR/EC)
40 mg PO DAILY
levothyroxine 50 MCG tablet
50 mcg PO DAILY AT 0700
clobetasol 0.05 % Ointment
1 applic TOPICAL DAILY
amlodipine 5 mg Tablet
5 mg PO QPM
Dupixent Syringe 300 mg/2 mL Syringe
300 mg SC QWEEK
De3 Dry Eye [place] Benefits 800 mg-186.67 mg-8.33 mcg Capsule
1 cap PO BID
amiodarone 200 mg Tablet
200 mg PO DAILY
therapeutic multivitamin Tablet
1 tab PO DAILY
telmisartan 80 mg Tablet
80 mg PO DAILY
Visbiome 112.5 billion cell Capsule
1 cap PO DAILY
docusate sodium [Colace] 100 mg Capsule
100 mg PO DAILY
Discontinued
metoprolol succinate 25 MG tablet extended release 24 hr
25 mg PO QPM
Xarelto 20 mg Tablet
20 mg PO QPM
Discharge Orders:
Discharge Patient (As Directed); Ordered 06/03/25
Ordered By: Tao Crain
Discharge Date and Time
Print Language: GREEK
[2025-06-03] MEDS: FLUZONE HIGH-DOSE 2025-26 0.5 ML IM (13:20)
== END 2025-06-03 14:50 | disposition home or self-care (01) | DRG 811 ==
LOC: 4 EAST ACU 15:47
PROVIDERS: Clinical Nurse Specialist Family Health; ADMITTING PHYSICIAN Internal Medicine; ATTENDING PHYSICIAN Internal Medicine; CONSULT PHYSICIAN Internal Medicine Gastroenterology; EMERGENCY PHYSICIAN Emergency Medicine; FAMILY PHYSICIAN Family Medicine; OTHER PHYSICIAN Internal Medicine Cardiovascular Disease
PROC: 0DJ08ZZ Inspection of Upper Intestinal Tract, Via Natural or Artificial Opening Endoscopic (ICD-10-PCS; 2025-06-02)
PROC: 3E02340 Introduction of Influenza Vaccine into Muscle, Percutaneous Approach (ICD-10-PCS; 2025-06-03)
DX: D62 Acute posthemorrhagic anemia (principal); K31.811 Angiodysplasia of stomach and duodenum with bleeding; D68.32 Hemorrhagic disorder due to extrinsic circulating anticoagulants; K44.9 Diaphragmatic hernia without obstruction or gangrene; K22.2 Esophageal obstruction; R00.1 Bradycardia, unspecified; I48.0 Paroxysmal atrial fibrillation; I44.7 Left bundle-branch block, unspecified; I10 Essential (primary) hypertension; E03.9 Hypothyroidism, unspecified; Z87.891 Personal history of nicotine dependence; M19.90 Unspecified osteoarthritis, unspecified site; M81.0 Age-related osteoporosis without current pathological fracture; Z85.51 Personal history of malignant neoplasm of bladder; Z79.899 Other long term (current) drug therapy; Z79.01 Long term (current) use of anticoagulants; Z79.890 Hormone replacement therapy; Z80.3 Family history of malignant neoplasm of breast; Z96.651 Presence of right artificial knee joint; E11.9 Type 2 diabetes mellitus without complications; E78.00 Pure hypercholesterolemia, unspecified; K80.20 Calculus of gallbladder without cholecystitis without obstruction; K21.9 Gastro-esophageal reflux disease without esophagitis; Z23 Encounter for immunization
CPT/HCPCS: 36415; 71046; 80053; 82607; 82728; 82746; 83540; 83550; 84484; 85025; 85610; 85730; 86850; 86870; 86900; 86901; 90662; 93005; 96374; 99285; G0008

== ENCOUNTER → 2025-06-14 13:54 | Outpatient (REF) | payer MEDICARE, SELFPAY ==
[2025-06-14 14:30] LABS: Hematocrit 30.3 % (37.0-47.0); Hemoglobin 9.2 g/dL (12.0-16.0); Mean Corp Hgb Conc. 30.4 g/dL (33.0-37.0); Mean Corpuscular Volume 85.4 fL (81.0-99.0); Nucleated Red Blood Cells % 0 %; Platelet Count 297 10^3/uL (130-400); Red Cell Dist. Width 14.3 % (11.5-14.5)
[2025-06-14 15:03] LABS: ALT (SGPT) 10 U/L (0-35); AST (SGOT) 23 U/L (14-36); Albumin 3.9 g/dl (3.5-5.0); Alkaline Phosphatase 52 U/L (38-126); Blood Urea Nitrogen 22 mg/dl (7-17); Calcium 9.2 mg/dl (8.4-10.2); Carbon Dioxide 27 mmol/L (22-30); Chloride 105 mmol/L (98-107); Glucose 171 mg/dl (70-99); Potassium 4.6 mmol/L (3.5-5.1); Sodium 138 mmol/L (135-145); Total Protein 6.3 g/dl (6.3-8.2); eGFR 54.53
== END ==
LOC: REG 13:54
PROVIDERS: ATTENDING PHYSICIAN Family Medicine
DX: Z87.19 Personal history of other diseases of the digestive system (principal)
CPT/HCPCS: 36415; 80053; 85025

== ENCOUNTER → 2025-06-17 11:48 | Outpatient (REF) | payer MEDICARE, SELFPAY | LOC: RAD 11:48 | PROVIDERS: ATTENDING PHYSICIAN Internal Medicine Gastroenterology; FAMILY PHYSICIAN Family Medicine | DX: T18.9XXA Foreign body of alimentary tract, part unspecified, initial encounter (principal) | CPT/HCPCS: 74018 ==

== ENCOUNTER → 2025-07-30 10:38 | Outpatient (REF) | payer MEDICARE, SELFPAY | LOC: RAD 10:38 | PROVIDERS: ATTENDING PHYSICIAN Internal Medicine Critical Care Medicine; FAMILY PHYSICIAN Family Medicine | DX: R06.02 Shortness of breath (principal) | CPT/HCPCS: 71046 ==